=== PATIENT | female | born 1935 | race Caucasian/White ===

== ENCOUNTER 2016-09-11 08:31 | Inpatient (IN) | payer MEDICARE, OTHER ==
[2016-09-11] VITALS (11 sets, daily range): BP systolic 4–154; BP diastolic 63–90; PULSE 86–121; RESP 18–31; O2SAT 92–96
[~2016-09-11] VITALS: Ht 160 cm; Wt 81.0 kg
[~2016-09-11 08:31] MED LIST: ALBU18HF INH; ALBU2.5V4 INHALATION; ALEN35TA31 PO; ASPI-973 PO; BUDE0.5A2 INHALATION; BUPR75TA10 PO; CHOL500011 PO; CYCL10TA9 PO; FORM20VI2 IH; HYDR-4003 PO; LIP40 PO; LOSA100T3 PO; MIRT15TA6 PO; NPH,100I SUBQ; OMEP20CA11 PO; POTA10TA12 PO; PREC VG; RALO60TA13 PO; TRIA1CAP5 PO
--- NOTE | 2016-09-11 08:44 | ED.REPORT ---
HPI-Dyspnea / Wheezing Date of Service Sep 11, 2016 ED Provider: Alejandro Wallace DO The patient is an 81 year old female with history of COPD, asthma, hyperlipidemia, hypertension, diabetes mellitus, and previous stroke, who was sent to the emergency department by her regular doctor. The patient was found to be in atrial flutter during her appointment this morning. She went to see her doctor this morning for a sore throat that started 2 days ago. She has also noticed a cough, subjective fever, chills, shortness of breath, and mild diffuse chest "soreness" and "tightness." She has not had similar symptoms in the past. She is not on oxygen at home. She uses Nebulizers and inhalers at home as needed. She is currently taking Prednisone and has 2 doses left. Nursing Notes Stated Complaint: COUGH Chief Complaint: Dysrhythmia/Cardiac Nursing Notes Reviewed: Yes Allergies: Coded Allergies: lidocaine (Verified Allergy, Mild, 09/11/16) Seizure amlodipine (Verified Allergy, Unknown, EDEMA, 09/11/16) ciprofloxacin (Verified Allergy, Unknown, 09/11/16) lisinopril (Verified Allergy, Unknown, COUGH, 09/11/16) metformin (Verified Allergy, Unknown, Diarrhea, 09/11/16) sulfanilamide (Verified Allergy, Unknown, 09/11/16) Scheduled Aspirin (Aspirin) 81 Mg Tablet 162 MG PO DAILY Atorvastatin (Lipitor) 40 Mg Tablet 40 MG PO DAILY Budesonide Neb Soln (Budesonide Neb Soln) 0.5 Mg/2 Ml Neb 0.5 MG INHALATION BID Bupropion (Bupropion) 75 Mg Tablet 75 MG PO BID Cholecalciferol (Vitamin D3) (Vitamin D3) 5,000 Unit Tablet 5,000 UNIT PO DAILY Denosumab (Prolia) 60 Mg/1 Ml Syringe 60 MG SQ M5albwmw Formoterol Fumarate (Perforomist) 20 Mcg/2 Ml Vial.neb 20 MCG IH BID Losartan Potassium (Cozaar) 100 Mg Tablet 100 MG PO DAILY Methocarbamol (Methocarbamol) 500 Mg Tablet Unknown Dose PO HS Mirtazapine (Mirtazapine) 15 Mg Tablet 15 MG PO HS NPH, Human Insulin Isophane (HUMulin-N U100 Insulin Kwikpen) 100 Unit/1 Ml Insuln.pen 14-20 UNIT SUBQ TID Potassium Chloride ER (Potassium Chloride ER) 10 Meq Tablet 20 MEQ PO DAILY WITH FOOD TAKE WITH FOOD Triamterene/HCTZ 37.5-25 mg (Triamterene/HCTZ 37.5-25 mg) 1 Each Capsule 1 CAPSULE PO DAILY Scheduled PRN Albuterol Neb Soln (Albuterol Neb Soln) 2.5 Mg/3 Ml Vial.neb 2.5 MG INHALATION Q4H PRN PRN For Shortness of Breath General Time Seen by MD: 08:42 Chief Complaint Other (new-onset atrial flutter) Hx Obtained From: Patient, Primary care provider Arrived By: Walk-in Sudden in Onset?: No Onset Occurred: Onset unknown Symptom Duration: Duration unknown Quality: Painful (soreness) Severity: Current: Mild Severity: Maximum: Moderate Recent Healthcare: No recent hospitalization, Recent doctor visit Similar Sx Previous: No Past Medical History Past Medical History Diverticulosis Diverticulitis COPD Asthma Hyperlipidemia Depression Osteoporosis Shoulder dislocation in 2006 HTN DM Fibromyalgia Peroneal Tendonitis Ovarian cyst Esophageal spasm Stroke Past Surgical History Back surgery Abd surgery for ruptured ovarian cyst Laminectomy L4-L5 Peroneal tendon repair, left side Family History Mother had a cerebral hemorrhage. She has an aunt and uncle suffering from hemorrhagic strokes. Father also had brain bleed at 90 which he from. She is not aware of any ischemic/embolic strokes on either side of family. Smoking History Former Smoker Social History Alcohol Use: Denies alcohol use Drug Use: Denies drug use Other Social History: Lives alone, Local resident Ambulatory Status Independent Review of Systems Constitutional: Reports: Chills, Fever (subjective) Ears / Nose / Throat: Reports: Sore throat Respiratory: Reports: Non-productive cough, Shortness of breath Cardiovascular: Reports: Chest pain (diffuse) Complete sys rev & neg: except as marked. Physical Exam Initial Vital Signs Vital Signs (First) Date Time Temp Pulse Resp B/P Pulse Ox O2 Delivery O2 Flow Rate FiO2 09/11/16 08:38 09/11/16 08:46 37.1 119 31 92 Room Air Initial VS: Reviewed, Vital signs abnormal (hypoxic) Head / Eyes: Atraumatic, Normocephalic, PERRL ENT: Mucous membranes moist, Conjunctiva normal, No scleral icterus Abdomen / GI: Soft, Non-tender, No guarding, No rebound, No distention Lymphatic: No lymphadenopathy Extremities: Vascular intact, Neuro intact, No swelling, No tenderness Skin: Warm, Dry, No cyanosis Neurologic: Alert, Oriented, Nonfocal Psychiatric: Mood/affect normal, Behavior normal, Normal thought content General/Constitutional: Awake, Alert, Cooperative Neck: Atraumatic, Supple, No meningismus, Full range of motion, No swelling, Non-tender, No masses Respiratory / Chest: No respiratory distress, No rales, No rhonchi Diminished Breath Sounds: Positive: Decreased bilateral Wheezing / Retractions: Positive: Wheezing expiratory (faint) Severely diminished breath sounds with poor air flow and minimal expiratory wheezing in the upper lobes. Cardiovascular: Regular rhythm, Heart sounds NL, Peripheral circulation NL, Pulses = bilaterally Heart Rate / Rhythm: Positive: Tachycardia Lower Extremity / Pelvis / MS: Neurologic intact, Vascular intact, No edema Interpretation & Diagnostics Interpretation & Diagnostics: Negative for Influenza A and B Lab Results Interpretation Result Diagram: 09/11/16 0845 09/11/16 0845 Test 09/11/16 08:45 09/11/16 08:55 White Blood Count 8.2th/mm3 (3.8-10.1) Red Blood Count 4.99mil/mm3 (3.90-5.20) Hemoglobin 14.4g/dL (12.0-15.6) Hematocrit 42.7% (35.0-46.0) Mean Corpuscular Volume 85.6fL (81-100) Mean Corpuscular Hemoglobin 28.9pg (27.0-35.0) Mean Corpuscular Hemoglobin Concent 33.7% (32.0-37.0) Red Cell Distribution Width 13.0% (12.3-15.4) Platelet Count 192bil/L (150-400) Neutrophils (%) (Auto) 82.7% (40-74) Lymphocytes (%) (Auto) 8.5% (14-46) Monocytes (%) (Auto) 8.2% (4-12) Eosinophils (%) (Auto) 0.1% (0-5) Basophils (%) (Auto) 0.4% (0-3) Sodium Level 136mEq/L (134-144) Potassium Level 4.3mEq/L (3.5-5.2) Chloride Level 99mEq/L (97-108) Carbon Dioxide Level 22mmol/L (18-29) Blood Urea Nitrogen 20mg/dL (8-27) Creatinine 0.63mg/dL (0.57-1.00) Estimat Glomerular Filtration Rate 130mL/min (>59) Glucose Level 239mg/dL (60-99) Calcium Level 9.4mg/dL (8.5-10.1) Magnesium Level 1.8mg/dL (1.6-2.6) Total Bilirubin 0.4mg/dL (0.0-1.2) Aspartate Amino Transf (AST/SGOT) 20U/L (0-50) Alanine Aminotransferase (ALT/SGPT) 21U/L (0-32) Alkaline Phosphatase 103U/L (25-165) Troponin T < 0.010ug/L (0.0-0.011) C-Reactive Protein 3.9mg/dL (0.0-0.5) Total Protein 7.4g/dL (6.4-8.4) Albumin 3.9g/dL (3.4-5.0) Procalcitonin 0.11ng/mL (0.00-0.08) Hold Shaikh Top Tube Received (Received) ECG Interpretation ECG Interpretation: Junctional tachycardia LBBB No acute ischemia Time: 08:58 Interpreted by: ED physician ECG Interpretation: Sinus rhythm with a rate of 99 LBBB Time: 09:20 Interpreted by: ED physician X-Ray Chest Interpretation Chest Xray Interpretation: IMPRESSION: Mildly reduced inspiratory volume, mild scarring at the left lung base, no definite pneumonia found. Dictated by: Tico Troncoso M.D. on 09/11/2016 at 9:40 Interpretation / Wet Read by: Interpret - Radiologist Re-Eval/Medical Decision Med Decision/Clinical Course This is likely a COPD exacerbation, she was originally sent over for concern for atrial flutter. Her EKG from urgent care did not look like atrial flutter however the interpretation of the machine reported this. Her EKGs in the emergency department appeared to be sinus rhythm. She is however unable to ambulate well independently due to shortness of breath and can barely ambulate beyond the doorway to her emergency department rim. This along with her advanced age, I feel that she should be admitted for regular nebulizer treatments and clinical improvement. Source of Hx: Old records, Private physician Re-Evaluation/Progress #1: Time of Eval: 09:24 Re-Evaluation/Progress Note: Rechecked the patient. Improved air movement, more prominent wheezes in the upper lobes and now some wheezing in the lower lobes. will order an additional breathing treatment. Re-Evaluation/Progress #2: Time of Eval: 10:30 Re-Evaluation/Progress Note: Rechecked the patient. She is feeling unsteady and jittery. Re-Evaluation/Progress #3: Time of Eval: 10:37 Re-Evaluation/Progress Note: The patient is unable to walk a few steps from her bed. Discussed plan for admission with the patient. Re-Evaluation/Progress #4: Time of Eval: 11:11 Re-Evaluation/Progress Note: The patient wanted to attempt a road test again but is still unable to walk more than a few steps without assistance. After a few steps she was sating 90 % on room air and needed to stop. She will be admitted to the hospitalist. Consultation : Consulted With: Hospitalist Requested Call at: 11:11 Silica Filter Operator: Will see patient, Agrees with eval, Agrees with plan, Accepts admit Counseled Regarding: Diagnosis, Lab results, Need for admission Discharge & Departure Impression: Primary Impression: COPD exacerbation Disposition: ADMITTED TO HOSPITAL Discharge Condition All VS Reviewed: Yes Condition: Stable Referrals: Danis Chung MD (PCP) Scribe Attestation Portions of this note were transcribed by Ailyn Munoz. I, Dr. Wallace personally performed the history, physical exam and medical decision-making; I reviewed and confirmed the accuracy of the information in the transcribed note. Signed by: Lily Almanza, 09/11/2016 and [Time]. copies to: Danis Chung MD, Timothy S DO Sep 11, 2016 08:44 Ailyn Munoz Sep 11, 2016 08:52
[2016-09-11] MEDS ORDERED: Diltiazem 5 mg/mL 5 mL Inj IVPUSH ONE (08:55)
[2016-09-11] MEDS ORDERED: MethylprednisoLONE Sodium Succinate 62.5 mg/mL 2 mL Inj IVPUSH ONE (08:55)
[2016-09-11] MEDS ORDERED: Albuterol-Ipratropium 3 mL Inhalation Solution NEB ONE (08:55)
[2016-09-11] MEDS ORDERED: 0.9% Sodium Chloride 1,000 ML IV ONE (08:55)
[2016-09-11 09:12] LABS: BASOPHILS % (AUTO) 0.4 % (0-3); EOSINOPHILS % (AUTO) 0.1 % (0-5); MONOCYTES % (AUTO) 8.2 % (4-12); Mean Corpuscular Hemoglobin 28.9 pg (27.0-35.0); Mean Corpuscular Volume 85.6 fL (81-100); NEUTROPHILS % (AUTO) 82.7 % (40-74); Platelet Count 192 bil/L (150-400)
[2016-09-11] MEDS ORDERED: Albuterol 2.5 mg/3 mL Inhalation Solution NEB ONE (09:25)
--- NOTE | 2016-09-11 09:41 | DRSVH ---
PROCEDURE: X-RAY CHEST ONE VIEW, PORTABLE ([id number]) INDICATIONS: CHEST PAIN TECHNIQUE: One view of the chest was acquired. COMPARISON: [facility], CR, XR CHEST 1VW (PORTABLE), 01/13/2016, 20:20. [facility], CR, CHEST 1VW (PORTABLE), 12/28/2014, 11:39. FINDINGS: Surgical changes and devices: None. Lungs and pleura: No pleural effusions or pneumothorax. Lungs are clear. Mediastinum: Mediastinal contours appear normal. Heart size is normal. Bones and chest wall: No suspicious bony lesions. Overlying soft tissues appear unremarkable. IMPRESSION: Mildly reduced inspiratory volume, mild scarring at the left lung base, no definite pneum onia found. Dictated by: Tico Troncoso M.D. on 09/11/2016 at 9:40 Approved by: Tico Troncoso M.D. on 09/11/2016 at 9:40
[2016-09-11 09:53] LABS: Magnesium 1.8 mg/dL (1.6-2.6)
[2016-09-11 10:00] LABS: TROPONIN T < 0.010 ug/L (0.0-0.011)
[2016-09-11] MEDS ORDERED: ROB500 PO (11:35)
[2016-09-11] MEDS ORDERED: Ondansetron 2 mg/mL 2 mL Inj IVPUSH PRN (11:35)
[2016-09-11] MEDS ORDERED: Alum-Mag Hydrox-Simeth 30 mL Suspension PO PRN (11:35)
[2016-09-11] MEDS ORDERED: DENO60DI SQ (11:35)
--- NOTE | 2016-09-11 12:15 | NUR ---
ADMIT Report received from Lauren Reyes RN in ED. Pt brought onto floor at 1215 via WC. VSS, no s/sx of distress. Med rec completed by admit nurse, reviewed with pt, notified. Admission interventions and initial assessments completed. Belongings stored in closet, waiver signed. Pt oriented to unit, room, and call light. Welcome video will be viewed once located.
[2016-09-11] MEDS ORDERED: HYDROcodone-APAP 5-325 mg Tablet PO PRN (12:35)
--- NOTE | 2016-09-11 14:19 | PCM.HPMED ---
Subjective Date of Service Sep 11, 2016 Primary Provider: Admitting Physician: Mathew Montiel DO Primary Care Physician: Danis Chung MD Attending Physician: Mathew Montiel DO Chief Complaint: sob History of Present Illness: The patient is an 81 year old female with history of COPD, asthma, hyperlipidemia, hypertension, diabetes mellitus, and CVA who was sent to the ER from for shortest of breath and a flutter. She reports that in the last few days she has developed URI symptoms and has also become more short of breath. She reports some subjective fevers, productive cough, and tightness in her chest. She reports this is usually present consistent with her COPD exacerbation so she took some prednisone last night and this morning. She has been using her inhalers more frequently without much relief. She endorses worsening dyspnea on exertion, to the point that walking to the garbage can from the front door will make her short of breath. She denies any home oxygen usage and denies any new medications. 4 she went to urgent care today because her symptoms were not improving. At the urgent care, an EKG was performed and she was found to be in a flutter/ A. fib with rates in the 120s and a questionable left bundle branch block of unknown chronicity. She did not have any chest pain did note mild chest tightness and pressure. She was then transferred to the ED for further evaluation. In the ED she was still tachycardic in the 110s but afebrile, normotensive. EKG was repeated and she was in normal sinus rhythm. She still had the LBBB but initial troponin was negative. She was rolled tested but desatted. Influenza swab was negative in the ER Review of Systems: 12 point review of systems negative except as stated in the history of present illness Allergies Coded Allergies: lidocaine (Verified Allergy, Mild, 09/11/16) Seizure amlodipine (Verified Allergy, Unknown, EDEMA, 09/11/16) ciprofloxacin (Verified Allergy, Unknown, 09/11/16) lisinopril (Verified Allergy, Unknown, COUGH, 09/11/16) metformin (Verified Allergy, Unknown, Diarrhea, 09/11/16) sulfanilamide (Verified Allergy, Unknown, 09/11/16) PMH Diverticulosis Diverticulitis COPD Asthma Hyperlipidemia Depression Osteoporosis Shoulder dislocation in 2006 HTN DM Fibromyalgia Peroneal Tendonitis Ovarian cyst Esophageal spasm H/o CVA Surgical History Back surgery Abd surgery for ruptured ovarian cyst Laminectomy L4-L5 Peroneal tendon repair, left side Family History Mother had a cerebral hemorrhage. She has an aunt and uncle suffering from hemorrhagic strokes. Father also had brain bleed at 90 which he from. Family history of Dm2 Social History Hx Alcohol Use: No Hx Substance Use: No Hx Tobacco Use: No Smoking Status: Former Smoker Living Arrangement: with Friends/Roommate Exam Vital Signs Vital Sign - Last Date Time Temp Pulse Resp B/P Pulse Ox O2 Delivery O2 Flow Rate FiO2 09/11/16 12:30 103 09/11/16 12:19 36.9 20 130/73 93 Room Air Exam Gen: Well-developed elderly female in no acute distress, sitting upright in bed , speaks full sentences HEENT: PERRLA, EOMI, oropharynx nonerythematous, mucosa moist Neck: Soft, nontender, no JVP noted CV: Tachycardic but regular rhythm, mild systolic murmur noted, weak but equal peripheral pulses Respiratory: Mild diffuse wheezing bilaterally, some upper lung rhonchi noted, mildly productive cough noted, normal respiratory effort Abdomen: Soft, obese, nontender, nondistended, normoactive bowel sounds MSK: Muscle strength grossly intact, moves all extremities, no clubbing, edema, or cyanosis noted Neuro: Grossly intact without focal weakness, Alert and oriented 3, conversive Skin: Warm, dry, intact. Psych: Appropriate mood and affect Lab and Diagnostics Result Diagram: 09/11/16 0845 09/11/16 0845 X-Rays, CTs and MRIs PROCEDURE: X-RAY CHEST ONE VIEW, PORTABLE ([id number]) IMPRESSION: Mildly reduced inspiratory volume, mild scarring at the left lung base, no definite pneumonia found. Assessment & Plan The patient is an 81 year old female with history of COPD, asthma, hyperlipidemia, hypertension, diabetes mellitus, and CVA who was sent to the ER from for shortest of breath and a flutter. Admitted for likely COPD exacerbation secondary to URI and Atrial flutter. Acute Exacerbation of COPD secondary to Viral infection, POA Patient's exacerbation is likely due to a URI since she complains of cough, rhinorrhea, and fatigue in the last few days. And also there is only a slight left shift but no elevated WBC and chest x-ray shows no acute processes. Unlikely secondary pneumonia She is not yet dependent on Oxygen at home, but reports she is getting increasingly GOLD in the last year. She is tachycardic but saturating around 90-93% on room air. Continue to keep saturations between 88-92% We will continue home nebulizers Physical therapy evaluation, may need oxygen at home also Patient was given 125 mg of Solu-Medrol IV in the ER, will plan to continue with oral prednisone for 5 day burst Tolerating by mouth intake so we will hold off on IV fluids Influenza A and Coronavirus infection, POA Nasopharyngeal PCR positive for influenza A and coronavirus We will initiate Tamiflu 75 mg twice a day 5 days Atrial flutter, POA She was originally noted to be in atrial flutter, but this has resolved. Likely due to increased strain from COPD exacerbation Placed on telemetry for CV monitoring T2DM requiring Insulin, POA Patient is on Humulin 3 times a day at home We will initiate Humulin correctional scale, high-dose A1c pending Hyperlipidemia, poa Continue atorvastatin Depression, poa Continue home medications: Mirtazapine daily at bedtime, bupropion twice a day HTN, poa Continue all medications: Losartan, triamterene/hydrochlorothiazide, potassium supplementation, ASA 81 Dispo: Due to patient's medical complexity and decompensation, she will require at least 2 nights for stabilization and treatment Pain Evaluation: Adequate Pain Control VTE Prophylaxis: Sub-Q Heparin (Unfractionated) Resuscitation Status: Limited Interventions Time spent 50 minutes Attending Statement I have seen and evaluated patient at bedside, in addition to directly supervising care provided by resident physician. I agree with above documentation. copies to: Danis Chung MD, Hong D DO Sep 11, 2016 13:00 Mathew Montiel DO Sep 11, 2016 15:27
--- NOTE | 2016-09-11 15:36 | NUR ---
Evaluation completed. Please go to "Notes" then click on "Assessments and Notes" (bottom left corner of screen). Then select appropriate discipline tab on top of screen.
--- NOTE | 2016-09-11 15:37 | NUR ---
Behavior - eating In room while pt eating lunch, overheard choking and coughing. Observed pt eating very fast, continually coughing then resuming once coughing stops. 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 Pt instructed to slow down when eating and take time. notified and requested to have Speech Eval. Spoke with Speech Therapy - pt diet and monitoring on board. Will relay to next shift.
[2016-09-11] MEDS: Albuterol-Ipratropium 3 mL Inhalation Solution NEB SCH ×2 (15:40→22:28)
[2016-09-11] MEDS: Insulin Human REGular 300 Unit/3 mL Inj SUBQ SCH ×2 (17:05→21:44)
[2016-09-11] MEDS: Heparin 5,000 Unit/mL Inj SUBQ SCH (17:10)
[2016-09-11] MEDS: Budesonide 0.5 mg/2 mL Inhalation Solution INHALATION SCH (22:28)
[2016-09-12] VITALS (10 sets, daily range): BP systolic 116–142; BP diastolic 64–78; PULSE 78–93; RESP 18–20; O2SAT 92–98
[2016-09-12] MEDS: Heparin 5,000 Unit/mL Inj SUBQ SCH ×3 (00:30→17:01)
[2016-09-12] MEDS: Insulin Human REGular 300 Unit/3 mL Inj SUBQ SCH ×4 (02:24→20:22)
--- NOTE | 2016-09-12 03:14 | NUR ---
COUGH Pt complained of cough keeping her awake. Administered Tessalon Pearles, effective. Pt resting in bed with eyes closed. No further complaints of cough at this time. Will continue to monitor. Call light within reach, using appropriately. Pleasant and cooperative with care.
[2016-09-12 06:30] LABS: BASOPHILS % (AUTO) 0.1 % (0-3); EOSINOPHILS % (AUTO) 0 % (0-5); Mean Corpuscular Hemoglobin 28.6 pg (27.0-35.0); Mean Corpuscular Volume 85.9 fL (81-100); Platelet Count 185 bil/L (150-400)
[2016-09-12] MEDS: Albuterol-Ipratropium 3 mL Inhalation Solution NEB SCH ×3 (07:25→20:34)
[2016-09-12] MEDS: Budesonide 0.5 mg/2 mL Inhalation Solution INHALATION SCH ×2 (07:25→20:34)
[2016-09-12] MEDS: predniSONE 20 mg Tablet PO SCH (08:15)
[2016-09-12] MEDS: Potassium Chloride 20 mEq SR Tablet PO SCH (08:16)
[2016-09-12] MEDS ORDERED: guaiFENesin DM 200-20 mg/10 mL Syrup PO PRN (08:45)
[2016-09-12] MEDS ORDERED: Benzocaine-Menthol Lozenge 2/Pkg PO PRN (08:45)
--- NOTE | 2016-09-12 10:53 | PCM.PNMED ---
Subjective Date of Service Sep 12, 2016 Subjective Brigette is doing better this morning. She reports she is still somewhat wheezy, but improving. Her cough bothers quite a bit because she feels like she has a lump in her throat that she can't cough up. She still is fairly dyspneic with exertion. Exam Vital Signs Vital Sign - Last Date Time Temp Pulse Resp B/P Pulse Ox O2 Delivery O2 Flow Rate FiO2 09/12/16 06:04 93 09/12/16 05:22 36.8 18 137/77 98 Room Air Intake and Output 09/11/16 09/11/16 09/12/16 Cumulative From/Thru 15:00 23:00 07:00 09/11/16 09:26 - 09/12/16 06:09 Intake Total 1000 ml 400 ml 2568 ml 3968 ml Balance 1000 ml 400 ml 2568 ml 3968 ml Intake Oral 400 ml 1200 ml 1600 ml IV Total 1000 ml 1368 ml 2368 ml # Voids 2 3 5 # Bowel Movements 0 0 Exam Gen: Well-developed elderly female in no acute distress, sitting upright in bed , speaks full sentences HEENT: PERRLA, EOMI, oropharynx nonerythematous, mucosa moist Neck: Soft, nontender, no JVP noted CV: RRR, mild systolic murmur noted, weak but equal peripheral pulses Respiratory: Mild diffuse wheezing bilaterally, mildly productive cough noted, normal respiratory effort Abdomen: Soft, obese, nontender, nondistended, normoactive bowel sounds MSK: Muscle strength grossly intact, moves all extremities, no clubbing, edema, or cyanosis noted Neuro: Grossly intact without focal weakness, Alert and oriented 3, conversive Skin: Warm, dry, intact. Psych: Appropriate mood and affect IVs and Medications Medications Reviewed: Medications were reviewed in detail Lab and Diagnostics Result Diagram: 09/12/1651209/12/16512 X-Rays, CTs and MRIs PROCEDURE: X-RAY CHEST ONE VIEW, PORTABLE ([id number]) IMPRESSION: Mildly reduced inspiratory volume, mild scarring at the left lung base, no definite pneumonia found. Assessment & Plan The patient is an 81 year old female with history of COPD, asthma, hyperlipidemia, hypertension, diabetes mellitus, and CVA who was sent to the ER from for shortest of breath and a flutter. Admitted for likely COPD exacerbation secondary to URI and Atrial flutter. Acute Exacerbation of COPD secondary to Viral infection, POA Patient's exacerbation likely due to Influenza and Coronavirus as below. And also there is only a slight left shift but no elevated WBC and chest x-ray shows no acute processes. Unlikely secondary pneumonia She is not yet dependent on Oxygen at home, but reports she is getting increasingly GOLD in the last year. She is tachycardic but saturating around 90-93% on room air. Continue to keep saturations between 88-92% We will continue home nebulizers Physical therapy evaluation, may need oxygen at home also Patient was given 125 mg of Solu-Medrol IV in the ER, will plan to continue with 40mg oral prednisone for 5 day burst Tolerating by mouth intake so we will hold off on IV fluids Influenza A and Coronavirus infection, POA Nasopharyngeal PCR positive for influenza A and coronavirus We will initiate Tamiflu 75 mg twice a day 5 days (started on 09/11) Added Guaifensin DM and Cepacol Lozenges to help alleviate coughing burden. Also has Pawan Davis prn Atrial flutter, POA She was originally noted to be in atrial flutter, but this has resolved. Likely due to increased strain from COPD exacerbation Placed on telemetry for CV monitoring T2DM requiring Insulin, POA Patient is on Humulin 3 times a day at home We will initiate Humulin correctional scale, high-dose A1c 9.4 during admission. May need night time Lantus if morning sugars >250 consistently Hyperlipidemia, poa Continue atorvastatin Depression, poa Continue home medications: Mirtazapine daily at bedtime, bupropion twice a day HTN, poa Continue all medications: Losartan, triamterene/hydrochlorothiazide, potassium supplementation, ASA 81 Dispo: Likely discharge in 1-2 days when medically improved Pain Evaluation: Adequate Pain Control VTE Prophylaxis: Sub-Q Heparin (Unfractionated) Resuscitation Status: Limited Interventions Attending Statement I have seen and evaluated Mrs. Hugo at her bedside, in addition to directly supervising the care provided by the resident physician. I agree with the above documentation, which matches my exam, findings and plans. Selwyn Arredondo M.D., DO Sep 12, 2016 06:51 Alta Goel MD Sep 12, 2016 11:19
--- NOTE | 2016-09-12 11:13 | NUR ---
Evaluation completed. Please go to "Notes" then click on "Assessments and Notes" (bottom left corner of screen). Then select appropriate discipline tab on top of screen.
--- NOTE | 2016-09-12 13:23 | NUR ---
Social Work: Initial Assessment / Readiness for d/c Data: Pt is an 81 y/o female admitted for COPD exacerbation. Pt's PCP is Dr Chung, pt's insurance is Medicare with [employer]. EMR reviewed. Pt discussed in rounds, MD states pt likely ready for d/c tomorrow. COMMANDING OFFICER GARAGE met with pt at bedside, role explained. Pt states that she lives in [place] with a roommate in a single story home where she uses a walker. Pt states she does not have a DPOA and declined information. Pt reports that she drives, has history with [facility] , history with [facility], and no VA or LTC insurance. Pt was sitting at bedside during discussion and states she has been up and independent in the room. No further d/c planning needs anticipated at this time. COMMANDING OFFICER GARAGE will continue to follow if needs arise. Assessment: Pt who is independent at baseline. Plan: Pt will d/c home via POV when medically stable, likely tomorrow. No further d/c planning needs anticipated at this time. COMMANDING OFFICER GARAGE will continue to follow if needs arise. SERAFIN May Addendum: 09/12/16 at 1330 by AKIRA ARANGO Amended: Links added.
[2016-09-12 16:12] LABS: APPEARANCE,URINE CLEAR (CLEAR,HAZY); COLOR,URINE STRAW (YELLOW); OCCULT BLOOD,URINE SMALL (NEGATIVE); UROBILINOGEN,URINE NORMAL (NORMAL)
--- NOTE | 2016-09-12 19:12 | NUR ---
SOB/Cough Morning assessment pt had ineffective cough, very raspy voice, unable to clear "frog in throat." MD notified, order for PRN Guaifenesin & Lozenge and encouraged to drink hot tea. Pt had several cups of tea. Reported improved cough, relief from dry throat, and better breathing. SOB improved over shift, no reports of SOB at rest. Lung sounds improved, little to no wheezing. Continuing to monitor.
[2016-09-13] VITALS (8 sets, daily range): BP systolic 119–142; BP diastolic 58–75; PULSE 64–93; RESP 18–20; O2SAT 91–95
[2016-09-13] MEDS: Heparin 5,000 Unit/mL Inj SUBQ SCH ×2 (02:52→07:43)
[2016-09-13] MEDS: Insulin Human REGular 300 Unit/3 mL Inj SUBQ SCH ×2 (02:53→09:04)
[2016-09-13 05:31] LABS: BASOPHILS % (AUTO) 0.4 % (0-3); EOSINOPHILS % (AUTO) 0.6 % (0-5); MONOCYTES % (AUTO) 10.7 % (4-12); Mean Corpuscular Hemoglobin 28.3 pg (27.0-35.0); Mean Corpuscular Volume 86.2 fL (81-100); NEUTROPHILS % (AUTO) 58.6 % (40-74); Platelet Count 176 bil/L (150-400)
--- NOTE | 2016-09-13 05:49 | NUR ---
Cough Pt continues to complain of cough. Refused tea. Administered Tessalon Pearles, effective. Will continue to monitor.
[2016-09-13] MEDS: Budesonide 0.5 mg/2 mL Inhalation Solution INHALATION SCH (07:18)
[2016-09-13] MEDS: Albuterol-Ipratropium 3 mL Inhalation Solution NEB SCH ×2 (07:18→12:38)
[2016-09-13] MEDS: Potassium Chloride 20 mEq SR Tablet PO SCH (07:42)
[2016-09-13] MEDS: predniSONE 20 mg Tablet PO SCH (07:42)
--- NOTE | 2016-09-13 09:15 | NUR ---
SAÚL signed SERAFIN May
--- NOTE | 2016-09-13 10:05 | NUR ---
Social Work: Readiness for d/c Data: Pt is on day 2 of hospitalization. EMR reviewed. Pt discussed in rounds, states pt likely to d/c today. No further d/c planning needs identified at this time. [employer]PERATOR will continue to follow. Assessment: Pt who is independent at baseline. Plan: Pt will d/c home via POV, likely today. No further d/c planning needs identified at this time. [employer]HICLE OPERATOR will continue to follow. SERAFIN May
--- NOTE | 2016-09-13 10:52 | NUR ---
Oxygen Patient is alert and oriented X3. Able to make needs known. per vital signs oxygen 91% room air. patient coughed and deep breath and rechecked oxygen levels still stayed 91% RA to 94% RA and dropped back to 91% RA.Notified doctor r/t Oxygen levels 91% at room air and aware. Afebrile. patient has been receiving neb treatment and states," they help me with cough and breathing better. Denies pain or discomfort. blood sugars 173. call light with in reach for safety and verbalize the understanding to use call light. Stable mood. Will continue to monitor vital signs and oxygen levels.
--- NOTE | 2016-09-13 11:27 | PCM.DIMED ---
Discharge Instructions Date of Service Sep 13, 2016 Dates of Hospitalization Sep 11, 2016 at 11:35 Discharge Diagnosis Discharge Diagnosis Acute Exacerbation of COPD secondary to Viral infection, present on admission, resolving Influenza A and Coronavirus infection, present on admission, resolving Atrial flutter, present on admission, resolved T2DM requiring Insulin, present on admission, stable Hyperlipidemia,present on admission, stable Depression,present on admission, stable HTN,present on admission, stable Diet Diabetic Activity No restrictions Call your provider Fever or Chills, Shortness of breath, Excessive diarrhea Patient Instructions For this hospitalization, you were admitted for COPD exacerbation. This was caused by the flu. Please take: -- prednisone 40mg daily. Please take for the next 2 day. -- Tamiflu 75mg twice daily. You will need to take 5 more doses of this medication. Additionally, please followup with your primary care provider in 1wk to see if your COPD exacerbation has been stabilized. Follow-up Provider: Danis Chung MD Follow-up with PCP in: 1 week Haider Carreno DO Sep 13, 2016 11:27
[2016-09-13] MEDS ORDERED: PRED-508 PO (11:29)
[2016-09-13] MEDS ORDERED: OSLT75C PO (11:29)
--- NOTE | 2016-09-13 12:29 | NUR ---
Discharge patient is alert and oriented X3. Denies pain or discomfort. stable vital signs. Oxygen 92%RA. Reviewed discharge continuing home medications and 2 new prescription from doctor and understood medications and states," they are not new to me, i have been taking them for years, the only new is Tamiflu and prednisone." patient called room mate to go home and awaiting for room mate. respiratory therapy here and patient will receive treatment before she discharges. Care notes provided and understood. patient will call and schedule the appointment with PCP with in one week as ordered.
--- NOTE | 2016-09-13 13:48 | NUR ---
Social Work: Discharge Data: Pt is on day 2 of hospitalization. EMR reviewed, d/c orders are in. No further d/c planning needed. [employer] RO[employer] will continue to follow if needs arise. Assessment: Pt who is independent at baseline. Plan: Pt will d/c home via POV today. No further d/c planning needed. [employer] will continue to follow if needs arise. SERAFIN May
--- NOTE | 2016-09-13 13:52 | NUR ---
Discharged approx 1350 patient's room mate here. patient discharged via wheel chair and accompanied by nursing staff.
--- NOTE | 2016-09-13 20:19 | PCM.DC.MED ---
Discharge Summary Date of Service Sep 13, 2016 Dates of Hospitalization Date of Hospital Admission Sep 11, 2016 at 11:35 Date of Discharge: Sep 13, 2016 Providers: Admitting Physician: Mathew Montiel DO Primary Care Physician: Danis Chung MD Attending Physician: Mathew Montiel DO Diagnosis at Time of Discharge Diagnosis at Time of Discharge Acute Exacerbation of COPD secondary to Viral infection, present on admission, resolving Influenza A and Coronavirus infection, present on admission, resolving Atrial flutter, present on admission, resolved T2DM requiring Insulin, present on admission, stable Hyperlipidemia,present on admission, stable Depression,present on admission, stable HTN,present on admission, stable Procedures XRay, CTs & MRIs PROCEDURE: X-RAY CHEST ONE VIEW, PORTABLE ([id number]) IMPRESSION: Mildly reduced inspiratory volume, mild scarring at the left lung base, no definite pneumonia found. Brief History The patient is an 81 year old female with history of COPD, asthma, hyperlipidemia, hypertension, diabetes mellitus, and CVA who was sent to the ER from for shortest of breath and a flutter. She reports that in the last few days she has developed URI symptoms and has also become more short of breath. She reports some subjective fevers, productive cough, and tightness in her chest. She reports this is usually present consistent with her COPD exacerbation so she took some prednisone last night and this morning. She has been using her inhalers more frequently without much relief. She endorses worsening dyspnea on exertion, to the point that walking to the garbage can from the front door will make her short of breath. She denies any home oxygen usage and denies any new medications. 4 she went to urgent care today because her symptoms were not improving. At the urgent care, an EKG was performed and she was found to be in a flutter/ A. fib with rates in the 120s and a questionable left bundle branch block of unknown chronicity. She did not have any chest pain did note mild chest tightness and pressure. She was then transferred to the ED for further evaluation. In the ED she was still tachycardic in the 110s but afebrile, normotensive. EKG was repeated and she was in normal sinus rhythm. She still had the LBBB but initial troponin was negative. She was rolled tested but desatted. Influenza swab was negative in the ER Hospital Course The patient is an 81 year old female with history of COPD, asthma, hyperlipidemia, hypertension, diabetes mellitus, and CVA who was sent to the ER from for shortest of breath and a flutter. Admitted for COPD exacerbation secondary to URI and atrial flutter. Received Tamiflu in addition to prednisone which tremendously improved breathing. Patient stable discharged with 2 more days of prednisone and Tamiflu Acute Exacerbation of COPD secondary to Viral infection, POA Patient's exacerbation likely due to Influenza and Coronavirus as below. And also there is only a slight left shift but no elevated WBC and chest x-ray shows no acute processes. Unlikely secondary pneumonia She is not yet dependent on Oxygen at home, but reports she is getting increasingly GOLD in the last year. Initially placed on Solu-Medrol 125 mg IV, switched to oral prednisone 40 mg qd started 09/11/2016 Continue on prednisone for 5 days course Influenza A and Coronavirus infection, POA Nasopharyngeal PCR positive for influenza A and coronavirus We will initiate Tamiflu 75 mg twice a day 5 days (started on 09/11) Added Guaifensin DM and Cepacol Lozenges to help alleviate coughing burden. Also has Tessalon Ryan prn Atrial flutter, POA She was originally noted to be in atrial flutter, but this has resolved. Likely due to increased strain from COPD exacerbation Placed on telemetry for CV monitoring T2DM requiring Insulin, POA Patient is on Humulin 3 times a day at home We will initiate Humulin correctional scale, high-dose A1c 9.4 during admission. May need night time Lantus if morning sugars >250 consistently Hyperlipidemia, poa Continue atorvastatin Depression, poa Continue home medications: Mirtazapine daily at bedtime, bupropion twice a day HTN, poa Continue all medications: Losartan, triamterene/hydrochlorothiazide, potassium supplementation, ASA 81 Exam Vital Signs (Last) Date Time Temp Pulse Resp B/P Pulse Ox O2 Delivery O2 Flow Rate FiO2 09/13/16 12:39 20 94 Room Air 09/13/16 12:20 37.2 93 137/71 Exam Gen: Well-developed elderly female in no acute distress, sitting upright in bed , speaks full sentences HEENT: PERRLA, EOMI, oropharynx nonerythematous, mucosa moist Neck: Soft, nontender, no JVP noted CV: RRR, mild systolic murmur noted, weak but equal peripheral pulses Respiratory: Mild diffuse wheezing bilaterally, mildly productive cough noted, normal respiratory effort Abdomen: Soft, obese, nontender, nondistended, normoactive bowel sounds MSK: Muscle strength grossly intact, moves all extremities, no clubbing, edema, or cyanosis noted Neuro: Grossly intact without focal weakness, Alert and oriented 3, conversive Skin: Warm, dry, intact. Psych: Appropriate mood and affect Test 09/11/16 08:45 09/11/16 08:55 09/11/16 14:25 09/11/16 20:10 Hemoglobin A1c 9.4% (4.8-5.6) Magnesium Level 1.8mg/dL (1.6-2.6) Procalcitonin 0.11ng/mL (0.00-0.08) Hold Shaikh Top Tube Received (Received) Lactic Acid Level 1.9mmol/L (0.4-2.0) Troponin T < 0.010ug/L (0.0-0.011) Test 09/12/16 05:13 09/12/16 15:50 09/13/16 05:05 Total Bilirubin 0.2mg/dL (0.0-1.2) Aspartate Amino Transf (AST/SGOT) 23U/L (0-50) Alanine Aminotransferase (ALT/SGPT) 19U/L (0-32) Alkaline Phosphatase 95U/L (25-165) C-Reactive Protein 3.7mg/dL (0.0-0.5) Total Protein 6.3g/dL (6.4-8.4) Albumin 3.6g/dL (3.4-5.0) Urine Color Straw (YELLOW) Urine Appearance Clear (CLEAR,HAZY) Urine pH 6.0 (5.0-8.0) Urine Specific Umbarger 1.005 (1.003-1.035) Urine Protein Negativemg/dL (NEG,TRACE) Urine Glucose (UA) 1000mg/dL (NEGATIVE) Urine Ketones Negativemg/dL (NEGATIVE) Urine Occult Blood Small (NEGATIVE) Urine Nitrite Negative (NEGATIVE) Urine Bilirubin Negative (NEGATIVE) Urine Urobilinogen Normalmg/dL (NORMAL) Urine Leukocyte Esterase Negative (NEGATIVE) Urine RBC 0-2/hpf (0-2) Urine WBC 0-5/hpf (0-5) Urine Epithelial Cells None/hpf (NONE-MOD) Urine Crystals None seen (NONE SEEN) Urine Bacteria None/hpf (NONE-FEW) Urine Hyaline Casts None/lpf (NONE) Urine Granular Casts None seen (NONE SEEN) Urine Waxy Casts None seen (NONE SEEN) Urine Red Blood Cell Casts None seen (NONE SEEN) Urine White Blood Cell Casts None seen (NONE SEEN) Urine Mucus None seen (None Seen) Urine Trichomonas None seen (NONE SEEN) Urine Yeast None (NONE SEEN) Urinalysis Comment None White Blood Count 5.3th/mm3 (3.8-10.1) Red Blood Count 4.48mil/mm3 (3.90-5.20) Hemoglobin 12.7g/dL (12.0-15.6) Hematocrit 38.6% (35.0-46.0) Mean Corpuscular Volume 86.2fL (81-100) Mean Corpuscular Hemoglobin 28.3pg (27.0-35.0) Mean Corpuscular Hemoglobin Concent 32.9% (32.0-37.0) Red Cell Distribution Width 13.1% (12.3-15.4) Platelet Count 176bil/L (150-400) Neutrophils (%) (Auto) 58.6% (40-74) Lymphocytes (%) (Auto) 29.7% (14-46) Monocytes (%) (Auto) 10.7% (4-12) Eosinophils (%) (Auto) 0.6% (0-5) Basophils (%) (Auto) 0.4% (0-3) Sodium Level 139mEq/L (134-144) Potassium Level 3.8mEq/L (3.5-5.2) Chloride Level 102mEq/L (97-108) Carbon Dioxide Level 23mmol/L (18-29) Blood Urea Nitrogen 23mg/dL (8-27) Creatinine 0.49mg/dL (0.57-1.00) Estimat Glomerular Filtration Rate 174mL/min (>59) Glucose Level 201mg/dL (60-99) Calcium Level 8.3mg/dL (8.5-10.1) Discharge Medications Discharge Medications Aspirin (Aspirin) 81 Mg Tablet 162 MG PO DAILY Prescribed by: GAVIN MASSEY MD Atorvastatin (Lipitor) 40 Mg Tablet 40 MG PO DAILY Prescribed by: GAVIN MASSEY MD Budesonide Neb Soln (Budesonide Neb Soln) 0.5 Mg/2 Ml Neb 0.5 MG INHALATION BID (Reported) Bupropion (Bupropion) 75 Mg Tablet 75 MG PO BID (Reported) Cholecalciferol (Vitamin D3) (Vitamin D3) 5,000 Unit Tablet 5,000 UNIT PO DAILY (Reported) Denosumab (Prolia) 60 Mg/1 Ml Syringe 60 MG SQ [id number] (Reported) Formoterol Fumarate (Perforomist) 20 Mcg/2 Ml Vial.neb 20 MCG IH BID (Reported) Losartan Potassium (Cozaar) 100 Mg Tablet 100 MG PO DAILY (Reported) Methocarbamol (Methocarbamol) 500 Mg Tablet Unknown Dose PO HS (Reported) Mirtazapine (Mirtazapine) 15 Mg Tablet 15 MG PO HS (Reported) NPH, Human Insulin Isophane (HUMulin-N U100 Insulin Kwikpen) 100 Unit/1 Ml Insuln.pen 14-20 UNIT SUBQ TID (Reported) Oseltamivir Phosphate (Tamiflu) 10 Cap/Pkg Capsule 75 MG PO BID Prescribed by: SRIDEVI CARRENO DO Potassium Chloride ER (Potassium Chloride ER) 10 Meq Tablet 20 MEQ PO DAILY WITH FOOD (Reported) TAKE WITH FOOD Prednisone (Deltasone) 20 Mg Tablet 40 MG PO DAILY take 1 pill daily, starting tomorrow (09/14) Prescribed by: SRIDEVI CARRENO DO Triamterene/HCTZ 37.5-25 mg (Triamterene/HCTZ 37.5-25 mg) 1 Each Capsule 1 CAPSULE PO DAILY (Reported) As needed Albuterol Neb Soln (Albuterol Neb Soln) 2.5 Mg/3 Ml Vial.neb 2.5 MG INHALATION Q4H PRN PRN For Shortness of Breath (Reported) Followup Plan Discharge Diet: Diabetic Discharge Activity: No restrictions Patient Instructions For this hospitalization, you were admitted for COPD exacerbation. This was caused by the flu. Please take: -- prednisone 40mg daily. Please take for the next 2 day. -- Tamiflu 75mg twice daily. You will need to take 5 more doses of this medication. Additionally, please followup with your primary care provider in 1wk to see if your COPD exacerbation has been stabilized. Follow-up Provider: Danis Chung MD Follow-up with PCP in: 1 week Attending Statement I saw Mrs. Hugo with Dr. Carreno. My exam and plans are as described above. William Goel MD copies to: Danis Chung MD,[facility] DO Sep 13, 2016 20:18 Alta Goel MD Sep 13, 2016 20:53
== END 2016-09-13 13:40 | disposition home or self-care (01) | DRG 194 ==
LOC: SED 08:31 → MPC 11:35
PROVIDERS: ADMIT Family Medicine; ATTEND Family Medicine
DX: J10.1 Influenza due to other identified influenza virus with other respiratory manifestations (principal); J44.1 Chronic obstructive pulmonary disease with (acute) exacerbation; I48.92 Unspecified atrial flutter; B97.29 Other coronavirus as the cause of diseases classified elsewhere; Z86.73 Personal history of transient ischemic attack (TIA), and cerebral infarction without residual deficits; Z79.52 Long term (current) use of systemic steroids; Z79.82 Long term (current) use of aspirin; Z87.891 Personal history of nicotine dependence; E11.9 Type 2 diabetes mellitus without complications; E78.5 Hyperlipidemia, unspecified; F32.9 Major depressive disorder, single episode, unspecified; I10 Essential (primary) hypertension

== ENCOUNTER 2016-09-28 15:18 | Inpatient (IN) | payer MEDICARE, OTHER ==
[~2016-09-28] VITALS: Ht 160 cm; Wt 82.6 kg
[2016-09-28] VITALS (10 sets, daily range): BP systolic 109–146; BP diastolic 66–83; PULSE 99–132; RESP 20–38; O2SAT 93–97
[~2016-09-28 15:18] MED LIST changes: -ALBU18HF INH; -ALEN35TA31 PO; -CYCL10TA9 PO; +DENO60DI SQ; -HYDR-4003 PO; -OMEP20CA11 PO; +OSLT75C PO; -PREC VG; +PRED-508 PO; -RALO60TA13 PO; +ROB500 PO; +Vancomycin Dose per Pharmacist XX ONE
[2016-09-28] MEDS ORDERED: 0.9% Sodium Chloride 1,000 ML IV ONE (15:25)
--- NOTE | 2016-09-28 15:25 | ED.REPORT ---
HPI-General Illness Date of Service Sep 28, 2016 ED Provider: Chencho Arredondo MD 81 year old female with a history of CVA, diabetes, and COPD presents to the ER via EMS due to fever (102.1F at home) and altered mental status. History is limited due to patient's mental status. No friends or family members are present for interview. Nursing Notes Stated Complaint: FEVER Nursing Notes Reviewed: Yes Allergies: Coded Allergies: lidocaine (Verified Allergy, Mild, 09/11/16) Seizure amlodipine (Verified Allergy, Unknown, EDEMA, 09/11/16) ciprofloxacin (Verified Allergy, Unknown, 09/11/16) lisinopril (Verified Allergy, Unknown, COUGH, 09/11/16) metformin (Verified Allergy, Unknown, Diarrhea, 09/11/16) sulfanilamide (Verified Allergy, Unknown, 09/11/16) Scheduled Aspirin (Aspirin) 81 Mg Tablet 162 MG PO DAILY Atorvastatin (Lipitor) 40 Mg Tablet 40 MG PO DAILY Budesonide Neb Soln (Budesonide Neb Soln) 0.5 Mg/2 Ml Neb 0.5 MG INHALATION BID Bupropion (Bupropion) 75 Mg Tablet 75 MG PO BID Cholecalciferol (Vitamin D3) (Vitamin D3) 5,000 Unit Tablet 5,000 UNIT PO DAILY Denosumab (Prolia) 60 Mg/1 Ml Syringe 60 MG SQ [id number] Formoterol Fumarate (Perforomist) 20 Mcg/2 Ml Vial.neb 20 MCG IH BID Losartan Potassium (Cozaar) 100 Mg Tablet 100 MG PO DAILY Methocarbamol (Methocarbamol) 500 Mg Tablet Unknown Dose PO HS Mirtazapine (Mirtazapine) 15 Mg Tablet 15 MG PO HS NPH, Human Insulin Isophane (HUMulin-N U100 Insulin Kwikpen) 100 Unit/1 Ml Insuln.pen 14-20 UNIT SUBQ TID Oseltamivir Phosphate (Tamiflu) 10 Cap/Pkg Capsule 75 MG PO BID Potassium Chloride ER (Potassium Chloride ER) 10 Meq Tablet 20 MEQ PO DAILY WITH FOOD TAKE WITH FOOD Prednisone (Deltasone) 20 Mg Tablet 40 MG PO DAILY take 1 pill daily, starting tomorrow (09/14) Triamterene/HCTZ 37.5-25 mg (Triamterene/HCTZ 37.5-25 mg) 1 Each Capsule 1 CAPSULE PO DAILY Scheduled PRN Albuterol Neb Soln (Albuterol Neb Soln) 2.5 Mg/3 Ml Vial.neb 2.5 MG INHALATION Q4H PRN PRN For Shortness of Breath General Time Seen by MD: 15:24 Chief Complaint Altered mental status, Fever Hx Obtained From: Patient, EMS Arrived By: Ambulance Onset Occurred: Onset unknown Past Medical History Past Medical History Diverticulosis Diverticulitis COPD Asthma Hyperlipidemia Depression Osteoporosis Shoulder dislocation in 2006 HTN DM Fibromyalgia Peroneal Tendonitis Ovarian cyst Esophageal spasm Stroke Past Surgical History Back surgery Abd surgery for ruptured ovarian cyst Laminectomy L4-L5 Peroneal tendon repair, left side Family History Mother had a cerebral hemorrhage. She has an aunt and uncle suffering from hemorrhagic strokes. Father also had brain bleed at 90 which he from. She is not aware of any ischemic/embolic strokes on either side of family. Smoking History Former Smoker Social History Alcohol Use: Denies alcohol use Drug Use: Denies drug use Other Social History: Lives alone, Local resident Ambulatory Status Independent Review of Systems ROS is limited due to patient's mental status. Full Review of Systems Constitutional: Reports: Fever (102.1F) Neurologic: Reports: Change LOC Psychiatric: Reports: Change mental status Complete sys rev & neg: except as marked. Physical Exam Vital Signs Vital Signs Date Time Temp Pulse Resp B/P Pulse Ox O2 Delivery O2 Flow Rate FiO2 09/28/16 17:49 114 33 143/80 96 Nasal Cannula 4 09/28/16 17:12 122 23 129/66 93 Room Air 09/28/16 16:15 125 38 146/73 95 Nasal Cannula 3 09/28/16 15:35 37.2 132 29 143/83 97 Nasal Cannula 3 Initial VS: Reviewed Head / Eyes: Atraumatic, Normocephalic Neck: Supple, Non-tender, Full range of motion Extremities: Vascular intact, Neuro intact, No swelling, No tenderness Skin: Warm, Dry, No cyanosis General/Constitutional: Well developed Alertness: Positive: Somnolent Appearance / Presentation: Positive: Hygiene poor Smells of urine. ENT: Airway patent, Pharynx NL Mouth: Positive: Mucous membranes dry Respiratory / Chest: No chest tenderness, No chest wall deformity Tachypneic. Coarse breath sounds bilaterally. Cardiovascular: Regular rhythm, Heart sounds NL, Cap refill not delayed, Peripheral circulation NL Heart Rate / Rhythm: Positive: Tachycardia Abdomen: Non-tender, No guarding, No rebound Bowel Sounds / Distention: Positive: Distention moderate Neurologic: No motor deficits, No sensory deficits Mental Status: Positive: Somnolent No visible neurological deficits. Interpretation & Diagnostics Lab Results Interpretation Result Diagram: 09/28/16 1530 09/28/16 1530 Test 09/28/16 15:30 09/28/16 15:50 09/28/16 15:56 White Blood Count 21.1th/mm3 (3.8-10.1) Red Blood Count 5.25mil/mm3 (3.90-5.20) Hemoglobin 15.1g/dL (12.0-15.6) Hematocrit 44.5% (35.0-46.0) Mean Corpuscular Volume 84.8fL (81-100) Mean Corpuscular Hemoglobin 28.8pg (27.0-35.0) Mean Corpuscular Hemoglobin Concent 33.9% (32.0-37.0) Red Cell Distribution Width 13.5% (12.3-15.4) Platelet Count 244bil/L (150-400) Neutrophils (%) (Auto) 82.9% (40-74) Lymphocytes (%) (Auto) 8.6% (14-46) Monocytes (%) (Auto) 8.1% (4-12) Eosinophils (%) (Auto) 0% (0-5) Basophils (%) (Auto) 0.1% (0-3) Sodium Level 131mEq/L (134-144) Potassium Level 4.3mEq/L (3.5-5.2) Chloride Level 93mEq/L (97-108) Carbon Dioxide Level 18mmol/L (18-29) Blood Urea Nitrogen 20mg/dL (8-27) Creatinine 0.53mg/dL (0.57-1.00) Estimat Glomerular Filtration Rate 159mL/min (>59) Glucose Level 286mg/dL (60-99) Calcium Level 9.4mg/dL (8.5-10.1) Total Bilirubin 0.9mg/dL (0.0-1.2) Aspartate Amino Transf (AST/SGOT) 17U/L (0-50) Alanine Aminotransferase (ALT/SGPT) 13U/L (0-32) Alkaline Phosphatase 90U/L (25-165) Troponin T 0.115ug/L (0.0-0.011) Pro-B-Type Natriuretic Peptide 3596pg/mL (0-738) Total Protein 7.6g/dL (6.4-8.4) Albumin 3.8g/dL (3.4-5.0) Procalcitonin 0.29ng/mL (0.00-0.08) Urine Color Yellow (YELLOW) Urine Appearance Clear (CLEAR,HAZY) Urine pH 6.0 (5.0-8.0) Urine Specific [place] 1.030 (1.003-1.035) Urine Protein 100mg/dL (NEG,TRACE) Urine Glucose (UA) 1000mg/dL (NEGATIVE) Urine Ketones 15mg/dL (NEGATIVE) Urine Occult Blood Moderate (NEGATIVE) Urine Nitrite Negative (NEGATIVE) Urine Bilirubin Negative (NEGATIVE) Urine Urobilinogen Normalmg/dL (NORMAL) Urine Leukocyte Esterase Negative (NEGATIVE) Urine RBC 3-10/hpf (0-2) Urine WBC 0-5/hpf (0-5) Urine Epithelial Cells Few/hpf (NONE-MOD) Urine Crystals Uric acid crystals (NONE Urine Bacteria None/hpf (NONE-FEW) Urine Hyaline Casts None/lpf (NONE) Urine Granular Casts None seen (NONE SEEN) Urine Waxy Casts None seen (NONE SEEN) Urine Red Blood Cell Casts None seen (NONE SEEN) Urine White Blood Cell Casts None seen (NONE SEEN) Urine Mucus None seen (None Seen) Urine Trichomonas None seen (NONE SEEN) Urine Yeast None (NONE SEEN) Urinalysis Comment None Urine Culture Reflexed Not indicated Lactic Acid Level 1.3mmol/L (0.4-2.0) Pulse Oximetry Interpretation Pulse Oximetry Interpretation: 97% on 3L O2 Pulse Oximetry: Pulse Ox normal, On nasal cannula ECG Interpretation ECG Interpretation: Sinus tachycardia, rate 139 LBBB When compared to ECG 09/11/2016 LBBB is not new, however patient is now tachycardic. Time: 15:42 Interpreted by: ED physician X-Ray Chest Interpretation Chest Xray Interpretation: IMPRESSION: Findings consistent with new left midlung pneumonia. Dictated by: Josh Ding M.D. on 09/28/2016 at 16:41 Approved by: Josh Ding M.D. on 09/28/2016 at 16:42 View: Portable, 1 view Interpretation / Wet Read by: Interpret - Radiologist Re-Eval/Medical Decision Med Decision/Clinical Course 81 year old female with a history of CVA, diabetes, and COPD presents to the ER via EMS due to fever (102.1F at home) and altered mental status. History is limited due to patient's mental status. No friends or family members are present for interview. Upon arrival the patient is tachycardic with a heart rate in the 130s though stable blood pressure. She is tachypneic and in respiratory distress. She is confused and unable to provide any significant history. Patient was placed on 3 L of supplemental oxygen by nasal cannula. IV access was obtained and laboratory studies were sent. Chest x-ray demonstrated new left middle lobe pneumonia. I administered a 3 L fluid bolus and started the patient on vancomycin and Zosyn. Laboratory studies were notable as below: UA unconvincing for UTI Lactic acid 1.3 Troponin 0.115 BNP 3596 Pro calcitonin 0.29 Leukocytosis 21.1 markedly elevated from baseline Overall presentation consistent with sepsis secondary to bacterial pneumonia. I see no other obvious infectious source at this time and her presentation is unconvincing for acute surgical abdominal process or bacterial meningitis. I see no evidence of soft tissue infection. Urinalysis is relatively unremarkable. Patient's tachycardia improved though she remained critically ill. She is currently being treated with IV antibiotics and IV fluids. Her lactic acid is not significantly elevated. EKG was obtained as documented above. Of note patient's troponin was elevated at 0.115 though I suspect that this is likely related to demand ischemia in the setting of her sepsis. EKG demonstrates no ST elevation [place]. Patient was discussed with hospitalist except to CCU for further management. Source of Hx: Old records Time of Eval: 16:03 Re-Evaluation/Progress Note: Completed physical examination. Time of Eval: 17:28 Re-Evaluation/Progress Note: Discussed lab and radiology results and need for admission. Consultation : Referral / Consult Name: Edmund Mendenhall MD Consulted With: Hospitalist Call Returned at: 17:28 Comprehensive Ophthalmologist: Agrees with eval, Agrees with plan, Accepts admit Counseled Regarding: Diagnosis, Lab results, Need for admission Discharge & Departure Primary Impression: Sepsis Sepsis type: sepsis due to unspecified organism Qualified Code: A41.9 - Sepsis, unspecified organism Additional Impressions: Pneumonia Pneumonia type: due to unspecified organism Laterality: left Lung location : lower lobe of lung Qualified Code: J18.9 - Pneumonia, unspecified organism Tachycardia Hypoxia Respiratory distress Disposition: ADMITTED TO HOSPITAL Discharge Condition All VS Reviewed: Yes Condition: Stable Referrals: Danis Chung MD (PCP) Crit Care Except Billable Proc Time Spent: 105-134 minutes Services Performed: Patient management by me, Time spent at bedside, Reviewing test results, Reviewing imaging, Discussing patient care, Documentation in record, Time with fam/surrogate Scribe Attestation Portions of this note were transcribed by Janak Bone. I, Dr. Arredondo, personally performed the history, physical exam and medical decision-making; I reviewed and confirmed the accuracy of the information in the transcribed note. Signed by: Lily Jay, 09/28/2016 and 17:28 copies to: Danis Chung MD, Beck O MD Sep 28, 2016 15:25 JANAK BONE Sep 28, 2016 15:49
[2016-09-28 15:46] LABS: BASOPHILS % (AUTO) 0.1 % (0-3); EOSINOPHILS % (AUTO) 0 % (0-5); MONOCYTES % (AUTO) 8.1 % (4-12); Mean Corpuscular Hemoglobin 28.8 pg (27.0-35.0); Mean Corpuscular Volume 84.8 fL (81-100); NEUTROPHILS % (AUTO) 82.9 % (40-74); Platelet Count 244 bil/L (150-400)
[2016-09-28] MEDS ORDERED: Ondansetron 2 mg/mL 2 mL Inj IVPUSH PRN ×2 (16:00→17:30)
[2016-09-28] MEDS ORDERED: Alum-Mag Hydrox-Simeth 30 mL Suspension PO PRN ×2 (16:00→17:30)
[2016-09-28 16:12] LABS: APPEARANCE,URINE CLEAR (CLEAR,HAZY); COLOR,URINE YELLOW (YELLOW); OCCULT BLOOD,URINE MODERATE (NEGATIVE); UROBILINOGEN,URINE NORMAL (NORMAL)
[2016-09-28 16:19] LABS: TROPONIN T 0.115 ug/L (0.0-0.011)
--- NOTE | 2016-09-28 16:44 | DRSVH ---
PROCEDURE: X-RAY CHEST ONE VIEW, PORTABLE ([id number]) INDICATIONS: 81 year-old female with pneumonia. TECHNIQUE: One view of the chest was acquired. COMPARISON: [facility], CR, XR CHEST 1VW (PORTABLE), 09/11/2016, 8:54. [facility], CR, XR CHEST 1VW (PORTABLE), 01/13/2016, 20:20. [facility], CR, CHEST 1VW (PORTABL E), 12/28/2014, 11:39. FINDINGS: Surgical changes and devices: None. Lungs and pleura: No pleural effusions or pneumothorax. There is new left midlung airspace opacity. Right lung remains clear. Mediastinum: Mediastinal contours appear normal. Heart size is normal. Bones and chest wall: No suspicious bony lesions. Overlying soft tissues appear unremarkable. IMPRESSION: Findings consistent with new left midlung pneumonia. Dictated by: Josh Ding M.D. on 09/28/2016 at 16:41 Approved by: Josh Ding M.D. on 09/28/2016 at 16:42
[2016-09-28] MEDS ORDERED: Vancomycin Dose per Pharmacist XX ONE (16:55)
[2016-09-28] MEDS ORDERED: Piperacillin-Tazo 3.375 Gm Inj 3.375 GM in Dextrose 5% Minibag Plus 50 ML IV ONE (16:55)
[2016-09-28] MEDS ORDERED: 0.9% Sodium Chloride 1,000 ML IV SCH (17:26)
[2016-09-28] MEDS ORDERED: Vancomycin Inj 1,500 MG in 0.9% Sodium Chloride 500 ML IV ONE (17:30)
[2016-09-28] MEDS ORDERED: Polyethylene Glycol (PEG) 17 Gm Powder PO PRN (17:30)
--- NOTE | 2016-09-28 19:08 | PCM.CONPHA ---
Subjective Date of Service: Sep 28, 2016 Reason for Pharmacy Consult: Vancomycin Dosing Objective Vital Signs Date Time Temp Pulse Resp B/P Pulse Ox O2 Delivery O2 Flow Rate FiO2 09/28/16 17:49 114 33 143/80 96 Nasal Cannula 4 09/28/16 17:12 122 23 129/66 93 Room Air 09/28/16 16:15 125 38 146/73 95 Nasal Cannula 3 09/28/16 15:35 37.2 132 29 143/83 97 Nasal Cannula 3 Weight (Kilograms): 77.27 Height (Feet): 5 Height (Inches): 4.5 Test 09/28/16 15:30 09/28/16 15:50 09/28/16 15:56 White Blood Count 21.1th/mm3 (3.8-10.1) Red Blood Count 5.25mil/mm3 (3.90-5.20) Hemoglobin 15.1g/dL (12.0-15.6) Hematocrit 44.5% (35.0-46.0) Mean Corpuscular Volume 84.8fL (81-100) Mean Corpuscular Hemoglobin 28.8pg (27.0-35.0) Mean Corpuscular Hemoglobin Concent 33.9% (32.0-37.0) Red Cell Distribution Width 13.5% (12.3-15.4) Platelet Count 244bil/L (150-400) Neutrophils (%) (Auto) 82.9% (40-74) Lymphocytes (%) (Auto) 8.6% (14-46) Monocytes (%) (Auto) 8.1% (4-12) Eosinophils (%) (Auto) 0% (0-5) Basophils (%) (Auto) 0.1% (0-3) Sodium Level 131mEq/L (134-144) Potassium Level 4.3mEq/L (3.5-5.2) Chloride Level 93mEq/L (97-108) Carbon Dioxide Level 18mmol/L (18-29) Blood Urea Nitrogen 20mg/dL (8-27) Creatinine 0.53mg/dL (0.57-1.00) Estimat Glomerular Filtration Rate 159mL/min (>59) Glucose Level 286mg/dL (60-99) Calcium Level 9.4mg/dL (8.5-10.1) Total Bilirubin 0.9mg/dL (0.0-1.2) Aspartate Amino Transf (AST/SGOT) 17U/L (0-50) Alanine Aminotransferase (ALT/SGPT) 13U/L (0-32) Alkaline Phosphatase 90U/L (25-165) Troponin T 0.115ug/L (0.0-0.011) Pro-B-Type Natriuretic Peptide 3596pg/mL (0-738) Total Protein 7.6g/dL (6.4-8.4) Albumin 3.8g/dL (3.4-5.0) Procalcitonin 0.29ng/mL (0.00-0.08) Urine Color Yellow (YELLOW) Urine Appearance Clear (CLEAR,HAZY) Urine pH 6.0 (5.0-8.0) Urine Specific [place] 1.030 (1.003-1.035) Urine Protein 100mg/dL (NEG,TRACE) Urine Glucose (UA) 1000mg/dL (NEGATIVE) Urine Ketones 15mg/dL (NEGATIVE) Urine Occult Blood Moderate (NEGATIVE) Urine Nitrite Negative (NEGATIVE) Urine Bilirubin Negative (NEGATIVE) Urine Urobilinogen Normalmg/dL (NORMAL) Urine Leukocyte Esterase Negative (NEGATIVE) Urine RBC 3-10/hpf (0-2) Urine WBC 0-5/hpf (0-5) Urine Epithelial Cells Few/hpf (NONE-MOD) Urine Crystals Uric acid crystals (NONE Urine Bacteria None/hpf (NONE-FEW) Urine Hyaline Casts None/lpf (NONE) Urine Granular Casts None seen (NONE SEEN) Urine Waxy Casts None seen (NONE SEEN) Urine Red Blood Cell Casts None seen (NONE SEEN) Urine White Blood Cell Casts None seen (NONE SEEN) Urine Mucus None seen (None Seen) Urine Trichomonas None seen (NONE SEEN) Urine Yeast None (NONE SEEN) Urinalysis Comment None Urine Culture Reflexed Not indicated Lactic Acid Level 1.3mmol/L (0.4-2.0) Assessment/Plan Assessment/Plan Vanco per Rx Indication: Sepsis/PNA Goal Trough: 15-20; Vd 54 Adonay 0.044; T1/2 15.75 LD 1500mg then 1000mg q18h; will draw early trough ( pt due to age) befoe 3rd dose on 09/30/16 @ 0530 am Oscar Voss PharmD Sep 28, 2016 19:08
[2016-09-28] MEDS ORDERED: MethylprednisoLONE Sodium Succinate 62.5 mg/mL 2 mL Inj IVPUSH ONE (20:45)
--- NOTE | 2016-09-28 21:00 | NUR ---
Admission note Pt admitted with fever/shortness of breath. She repeatedly asks for a breathing trx due to SOB. Pt appears anxious. Reported pt's symptoms to MD Breathing trx ordered. HOB elevated to promote improved oxygenation. Pulse oximetry at 96% on 2LNC Reviewed plan of care with patient and pt's room mate Pt verbalized understanding.
[2016-09-28] MEDS ORDERED: Glucose 40% Oral Gel 15 Gm Tube PO PRN (21:50)
[2016-09-28] MEDS: Albuterol-Ipratropium 3 mL Inhalation Solution NEB SCH (21:53)
--- NOTE | 2016-09-28 22:30 | PCM.HPMED ---
Subjective Date of Service Sep 28, 2016 Primary Provider: Admitting Physician: Edmund Mendenhall MD Primary Care Physician: Danis Chung MD Attending Physician: Edmund Mendenhall MD Admit Status: From the Emergency Department, Full Admit, [facility] Telemetry Chief Complaint: Confusion with fever at home History of Present Illness: Brigette Hugo is a 81 year old female with COPD, asthma, hyperlipidemia, hypertension, diabetes mellitus, and CVA who was presents to the [facility] Emergency department via EMS due to fever (102.1F at home) and altered mental status. History is limited due to patient's confusion. Her caregiver who is also her room mate reported that the patient was doing well last night but it was this morning that she states "I fell like crap", She was short of breathe, coughing with phlegm (unclear of the color or description) and also some confusion (she kept changing the channel and was not herself). She initially refused to come to the hospital but then this afternoon the caregiver checked on her and her symptoms got worst. Patient states she is on a tapering dose of Prednisone and she was doing it wrong. She was recently hospitalized and was diagnosed with Influenza A and coronavirus and completed a course of Tamiflu and steroids. Case discussed with Dr Arredondo, meeting sepsis criteria with left sided pneumonia. Plan to admit Review of Systems: unable to be obtained due to confusion Allergies Coded Allergies: lidocaine (Verified Allergy, Mild, 09/11/16) Seizure amlodipine (Verified Allergy, Unknown, EDEMA, 09/11/16) ciprofloxacin (Verified Allergy, Unknown, 09/11/16) lisinopril (Verified Allergy, Unknown, COUGH, 09/11/16) metformin (Verified Allergy, Unknown, Diarrhea, 09/11/16) sulfanilamide (Verified Allergy, Unknown, 09/11/16) Home Medications From recent Discharge Summary, not yet confirmed Aspirin (Aspirin) 81 Mg Tablet 162 MG PO DAILY Prescribed by: GAVIN MASSEY MD Atorvastatin (Lipitor) 40 Mg Tablet 40 MG PO DAILY Prescribed by: GAVIN MASSEY MD Budesonide Neb Soln (Budesonide Neb Soln) 0.5 Mg/2 Ml Neb 0.5 MG INHALATION BID (Reported) Bupropion (Bupropion) 75 Mg Tablet 75 MG PO BID (Reported) Cholecalciferol (Vitamin D3) (Vitamin D3) 5,000 Unit Tablet 5,000 UNIT PO DAILY (Reported) Denosumab (Prolia) 60 Mg/1 Ml Syringe 60 MG SQ [id number] (Reported) Formoterol Fumarate (Perforomist) 20 Mcg/2 Ml Vial.neb 20 MCG IH BID (Reported) Losartan Potassium (Cozaar) 100 Mg Tablet 100 MG PO DAILY (Reported) Methocarbamol (Methocarbamol) 500 Mg Tablet Unknown Dose PO HS (Reported) Mirtazapine (Mirtazapine) 15 Mg Tablet 15 MG PO HS (Reported) NPH, Human Insulin Isophane (HUMulin-N U100 Insulin Kwikpen) 100 Unit/1 Ml Insuln.pen 14-20 UNIT SUBQ TID (Reported) Oseltamivir Phosphate (Tamiflu) 10 Cap/Pkg Capsule 75 MG PO BID Prescribed by: SRIDEVI NEVAREZ DO Potassium Chloride ER (Potassium Chloride ER) 10 Meq Tablet 20 MEQ PO DAILY WITH FOOD (Reported) TAKE WITH FOOD Prednisone (Deltasone) 20 Mg Tablet 40 MG PO DAILY take 1 pill daily, starting tomorrow (09/14) Prescribed by: SRIDEVI NEVARZE DO Triamterene/HCTZ 37.5-25 mg (Triamterene/HCTZ 37.5-25 mg) 1 Each Capsule 1 CAPSULE PO DAILY (Reported) As needed Albuterol Neb Soln (Albuterol Neb Soln) 2.5 Mg/3 Ml Vial.neb 2.5 MG INHALATION Q4H PRN PRN For Shortness of Breath (Reported) PMH Diverticulosis Diverticulitis COPD Asthma Hyperlipidemia Depression Osteoporosis Shoulder dislocation in 2006 HTN Type 2 Diabetes Fibromyalgia Peroneal Tendonitis Ovarian cyst Esophageal spasm H/o CVA . Surgical History Back surgery Abd surgery for ruptured ovarian cyst Laminectomy L4-L5 Peroneal tendon repair, left side Family History Mother had a cerebral hemorrhage. She has an aunt and uncle suffering from hemorrhagic strokes. Father also had brain bleed at 90 which he from. Family history of Dm2 Social History Hx Alcohol Use: No Hx Substance Use: No Hx Tobacco Use: Yes Smoking Status: Former Smoker Living Arrangement: Alone (with caregiver living in with her) Exam Vital Signs Vital Sign - Last Date Time Temp Pulse Resp B/P Pulse Ox O2 Delivery O2 Flow Rate FiO2 09/28/16 21:11 96 Nasal Cannula 2.00 09/28/16 19:55 36.4 103 31 115/76 Exam General: Alert, Confused with delayed response, Cooperative, Moderate respiratory distress with tachypnea and few words sentences Eyes: PERRLA, Scleral Anicteric Mouth: Mouth Normal, Mucous Membranes Moist/[place] Neck: Supple, no Thyromegaly, trachea central. Chest & Lungs: Left base crackles with decreased breathe sounds, expiratory wheezing noted Cardiovascular: Normal S1, Normal S2, No Murmurs/Rubs/Gallops, Regular Rate/ Rhythm, (No JVD, no peripheral edema) Pulses: Radial (present and equal), Dorsalis Pedi (present and equal) Abdomen: Soft, Non-tender, Non-distended, Normoactive bowel tones. Musculoskeletal: Unremarkable. Normal range of motion, no swollen or erythematous joints Extremities: No edema, no cyanosis, no clubbing. Skin: No rashes. Warm and dry, no erythematous areas Neurological: Grossly neurologically intact, Normal Speech, Sensation Intact Lymphatic: Lymph nodes Cervical and Axillary not palpable. Lab and Diagnostics Labs Laboratory Tests Test 09/28/16 15:30 09/28/16 15:50 09/28/16 15:56 White Blood Count 21.1th/mm3 (3.8-10.1) Red Blood Count 5.25mil/mm3 (3.90-5.20) Hemoglobin 15.1g/dL (12.0-15.6) Hematocrit 44.5% (35.0-46.0) Mean Corpuscular Volume 84.8fL (81-100) Mean Corpuscular Hemoglobin 28.8pg (27.0-35.0) Mean Corpuscular Hemoglobin Concent 33.9% (32.0-37.0) Red Cell Distribution Width 13.5% (12.3-15.4) Platelet Count 244bil/L (150-400) Neutrophils (%) (Auto) 82.9% (40-74) Lymphocytes (%) (Auto) 8.6% (14-46) Monocytes (%) (Auto) 8.1% (4-12) Eosinophils (%) (Auto) 0% (0-5) Basophils (%) (Auto) 0.1% (0-3) Sodium Level 131mEq/L (134-144) Potassium Level 4.3mEq/L (3.5-5.2) Chloride Level 93mEq/L (97-108) Carbon Dioxide Level 18mmol/L (18-29) Blood Urea Nitrogen 20mg/dL (8-27) Creatinine 0.53mg/dL (0.57-1.00) Estimat Glomerular Filtration Rate 159mL/min (>59) Glucose Level 286mg/dL (60-99) Calcium Level 9.4mg/dL (8.5-10.1) Total Bilirubin 0.9mg/dL (0.0-1.2) Aspartate Amino Transf (AST/SGOT) 17U/L (0-50) Alanine Aminotransferase (ALT/SGPT) 13U/L (0-32) Alkaline Phosphatase 90U/L (25-165) Troponin T 0.115ug/L (0.0-0.011) Pro-B-Type Natriuretic Peptide 3596pg/mL (0-738) Total Protein 7.6g/dL (6.4-8.4) Albumin 3.8g/dL (3.4-5.0) Procalcitonin 0.29ng/mL (0.00-0.08) Urine Color Yellow (YELLOW) Urine Appearance Clear (CLEAR,HAZY) Urine pH 6.0 (5.0-8.0) Urine Specific [place] 1.030 (1.003-1.035) Urine Protein 100mg/dL (NEG,TRACE) Urine Glucose (UA) 1000mg/dL (NEGATIVE) Urine Ketones 15mg/dL (NEGATIVE) Urine Occult Blood Moderate (NEGATIVE) Urine Nitrite Negative (NEGATIVE) Urine Bilirubin Negative (NEGATIVE) Urine Urobilinogen Normalmg/dL (NORMAL) Urine Leukocyte Esterase Negative (NEGATIVE) Urine RBC 3-10/hpf (0-2) Urine WBC 0-5/hpf (0-5) Urine Epithelial Cells Few/hpf (NONE-MOD) Urine Crystals Uric acid crystals (NONE Urine Bacteria None/hpf (NONE-FEW) Urine Hyaline Casts None/lpf (NONE) Urine Granular Casts None seen (NONE SEEN) Urine Waxy Casts None seen (NONE SEEN) Urine Red Blood Cell Casts None seen (NONE SEEN) Urine White Blood Cell Casts None seen (NONE SEEN) Urine Mucus None seen (None Seen) Urine Trichomonas None seen (NONE SEEN) Urine Yeast None (NONE SEEN) Urinalysis Comment None Urine Culture Reflexed Not indicated Lactic Acid Level 1.3mmol/L (0.4-2.0) Microbiology 09/28/16 Blood Culture, Received Pending Result Diagram: 09/28/16 1530 09/28/16 1530 X-Rays, CTs and MRIs X-RAY CHEST ONE VIEW, PORTABLE 09/28 IMPRESSION: Findings consistent with new left midlung pneumonia. Dictated by: Josh Ding M.D. on 09/28/2016 at 16:41 Approved by: Josh Ding M.D. on 09/28/2016 at 16:42 Assessment & Plan Brigette Hugo is a 81 year old female with COPD, asthma, hyperlipidemia, hypertension, diabetes mellitus, and CVA who was presents to the [facility] Emergency department via EMS due to Sepsis due to pneumonia 1. Acute Severe Sepsis. Present on admission Meeting criteria with tachycardia, leukocytosis and pulmonary source with pneumonia. Organ dysfunction with encephalopathy - Lactic acid normal - Sepsis protocol initiated - monitor for advancement to septic shock 2. Healthcare associated pneumonia. Present on admission Meeting criteria with recent admission within last 90 days. High risk for MRSA and Pseudomonal infection. - Immunocompromised state with recent insult from Viral infection Influenza and luevano virus - Vancomcyin and Zosyn IV for empiric antibiotics - consider Infectious disease consult to aid with antibiotics de escalation - Blood cultures, sputum analysis 3. Acute Encephalopathy. Present on admission - Due to Sepsis. - treat underlying sepsis - high risk for delirium, avoid psychoactive medications 4. Possible Acute Exacerbation of COPD secondary to pneumonia. Present on admission - steroids with Solu-Medrol IV 125 mg IV - Albuterol treatments scheduled - oxygen supplementation 5. Atrial flutter, Chronic currently rate controlled - monitor on telemetry 6. Type 2 Diabetes, requiring Insulin - high correction Lispro algorithm - resume outpatient insulin regimen 7. Hyperlipidemia, - Continue atorvastatin 8. Depression - continue Mirtazapine daily at bedtime, bupropion twice a day 9. Hypertension - Continue all medications: Losartan, triamterene/hydrochlorothiazide, - Acetaminophen as needed for mild pain/fever/headache - Bowel regimen as needed - Antiemetic as needed Patient admitted under inpatient status with expected length of stay > 2 midnights for severity of present symptoms, complexities of treatment plan and risk for adverse event . Resuscitation Status: CPR: Attempt Resuscitation Edmund Mendenhall MD Sep 28, 2016 21:51
[2016-09-28] MEDS: 0.9% Sodium Chloride 1,000 ML IV SCH (22:32)
--- NOTE | 2016-09-28 23:15 | NUR ---
SOB Pt continued to complain of SOB until her breathing trx arrived via RT Following breathing trx pt stated she felt much "better". Remains at 95% on 2 LNC
--- NOTE | 2016-09-28 23:34 | NUR ---
Transfer Pt transferred to 3007. Report given to Cleo Davis
--- NOTE | 2016-09-28 23:35 | NUR ---
Med Rec [facility] notified that [facility] would like her most recent med list. NPH dose unclear.
[2016-09-28] MEDS: Insulin LISPRO 300 Unit/3 mL Inj SUBQ SCH (23:43)
[2016-09-29] VITALS (12 sets, daily range): BP systolic 109–136; BP diastolic 58–79; PULSE 76–98; RESP 16–22; O2SAT 92–97
[2016-09-29] MEDS ORDERED: Piperacillin-Tazo 3.375 Gm Inj 3.375 GM in Dextrose 5% Minibag Plus 50 ML IV SCH (00:30)
[2016-09-29] MEDS: Albuterol 2.5 mg/3 mL Inhalation Solution NEB SCH ×6 (00:30→20:30)
[2016-09-29] MEDS: Piperacillin-Tazo 3.375 Gm Inj 3.375 GM in Dextrose 5% Minibag Plus 50 ML IV SCH ×3 (02:15→19:21)
[2016-09-29] MEDS: Heparin 5,000 Unit/mL Inj SUBQ SCH ×3 (02:15→17:34)
[2016-09-29] MEDS: 0.9% Sodium Chloride 1,000 ML IV SCH ×3 (06:09→14:00)
[2016-09-29 06:37] LABS: BASOPHILS % (AUTO) 0.3 % (0-3); EOSINOPHILS % (AUTO) 0.8 % (0-5); Mean Corpuscular Hemoglobin 29.4 pg (27.0-35.0); NEUTROPHILS % (AUTO) 89.7 % (40-74); Platelet Count 168 bil/L (150-400)
--- NOTE | 2016-09-29 07:45 | NUR ---
[place] [facility] on unit #[id number] via stretcher with all personal belongings. Unable to transfer self to bed. VSS. Bed locked, low position. Call light within reach. Cooperative with care.
--- NOTE | 2016-09-29 07:46 | NUR ---
Nausea Pt vomited while being [place] [facility] Continued to complain of nausea. Administered Zofran 4mg, effective. No further complaints of nausea. Will continue to monitor.
[2016-09-29] MEDS: Albuterol-Ipratropium 3 mL Inhalation Solution NEB SCH ×5 (10:37→19:56)
[2016-09-29] MEDS: Insulin LISPRO 300 Unit/3 mL Inj SUBQ SCH ×4 (10:38→20:57)
[2016-09-29] MEDS ORDERED: Ipratropium 0.02% 0.5 mg/2.5 mL Inhalation Solution NEB ONE (12:26)
[2016-09-29] MEDS ORDERED: Insulin GLARgine 100 Unit/mL Syringe SUBQ ONE (14:10)
[2016-09-29] MEDS ORDERED: Vancomycin Inj 1,000 MG in IV Premix 1 EACH IV SCH (15:00)
--- NOTE | 2016-09-29 19:20 | CONS ---
[address] [address] CONSULTATION REPORT PATIENT: NUNO ALATORRE : 1935 MR#: [id number] ADMIT: 09/28/2016 JOB ID: [id number] DATE OF SERVICE: 09/29/[address] Cam for this consult. REASON FOR CONSULTATION: Left-sided pneumonia in an elderly woman with underlying COPD. HISTORY OF PRESENT ILLNESS: The patient is an 81-year-old woman who lives with a caregiver in the [facility]. She is usually fairly independent but is somewhat limited by her fairly severe COPD. She often is on oral steroids though not continuously and uses a wide variety of inhalers. She was hospitalized here from September 11 to September 13 with acute respiratory difficulty. During the course of that evaluation, it was found that she was having a very severe COPD exacerbation which was precipitated by a combination of influenza A and luevano virus which were determined by the multiplex PCR. She was also found to be in AFib/flutter with high cardiac rates and was admitted, evaluated and did very well. She was discharged home in improved condition on September 13. She then reports that she developed the acute onset of high fever and altered mental status yesterday, September 28. Because of the fever, altered mental status and a worse than normal productive cough, her caregiver summoned help and she was brought here and admitted. Today, her mental status is much clearer and she reports that this sudden development of fevers, chills, increasing cough, worsening shortness of breath and confusion was relatively sudden. She has only been here a day or so now and has received IV hydration and the beginnings of a course of IV antibiotics and she is already dramatically improved. This afternoon, she still has a cough which is quite severe and is sometimes productive of yellow sputum. She no longer notes any fevers or chills today and notes that her mental status is back to normal. Her memory of what happened yesterday is a bit limited. She has no acute GI or symptoms. PAST MEDICAL HISTORY: 1. COPD. 2. Hypertension. 3. Hyperlipidemia. 4. Diabetes. 5. History of CVA. 6. History of diverticular disease. 7. Back surgery for chronic back pain. SOCIAL HISTORY: The patient is a former smoker but no longer. She does not drink and lives with a caregiver. FAMILY HISTORY: Notable for diabetes mellitus in multiple relatives as well as a mother with cerebral hemorrhage. Both her mother and father had cerebral hemorrhage and in her father's case this caused his . There is no family history of TB. REVIEW OF SYSTEMS: Was done. The patient states at this time she has no significant headache though she often is troubled by headache around her right ear. She has no acute visual change. No sore throat. She does have a cough productive of yellowish sputum. She has some left pleuritic chest pain which is new. No nausea, vomiting, diarrhea, or dysuria. Remainder of the review of systems is noncontributory or negative. PHYSICAL EXAMINATION: Reveals an elderly woman in no acute distress. Temp 36.7, pulse 98, respiratory rate 20, blood pressure 117/60. She is saturating well on 3 L. Examination of the head reveals no evidence of trauma. The eyes without conjunctivitis. Oral cavity: No thrush or hairy leukoplakia. Neck without adenopathy and is reasonably supple. The preauricular areas where she sometimes has pain are free of any notable abnormality. The lung exam is notable for decreased breath sounds bilaterally with scattered wheezes. A few rales are heard primarily in the left lower lung field. The back is without notable abnormality. The abdomen is soft and nontender. No significant rash is noted. The patient's mental status was clear today and she asked very sharp questions. Physical exam was a bit truncated because the patient was sitting up beside her bed and trying to finish dinner so I could not perform much of the rest of the exam. LABORATORIES: Include a white blood count 11,800, was 21,000 yesterday. There is a considerable left shift. Creatinine is 0.48. LFTs are normal. Albumin 2.9. Urinalysis without white cells. Urine Legionella and pneumococcal antigens are negative. Sputum Gram stain today shows moderate polys with some normal jun. Blood cultures negative. Urine Legionella and pneumococcal antigens negative. In reviewing the records from the last admission. She had the multiplex PCR that was positive for influenza A and luevano virus. Blood cultures were negative at that time. The patient's chest x-ray from last time shows COPD and that was about two weeks ago. This time, there is a large left mid lung round infiltrate which is clearly new. IMPRESSION: This patient is admitted with what clearly seems to be a post influenza pneumonia. The two most common bacteria causing a post influenza pneumonia are strep pneumoniae and Staphylococcus aureus. Either would be operational here and, of course, the patient could also have H. flu, Moraxella or some other chronic obstructive pulmonary disease-associated post viral pneumonia. So far, we are waiting on her MRSA screen, but I do not think I would initially treated with vancomycin as toxicity is likely to exceed the benefit. RECOMMENDATIONS: 1. This case discussed with Dr. Cam at the bedside. 2. I would continue with azithromycin and Zosyn as has been started at this time. 3. Depending on what we get her cultures, we can hopefully narrow down her antibiotics and perhaps even get her out of the hospital fairly quickly as she seems to be improving at a rapid rate. 4. I will follow up with this patient and with the team again tomorrow.
--- NOTE | 2016-09-29 20:19 | PCM.PNMED ---
Subjective Date of Service Sep 29, 2016 Subjective Patient is a 81 year old female with COPD, asthma, hyperlipidemia, hypertension , diabetes mellitus, and CVA who was presents to the [facility] ED via EMS with high fever (102.1F) and altered mental status. Admitted for sepsis criteria with left sided pneumonia. Hospital day 2. No acute overnight events. This morning, she states she does not feel better. Her main complaint is difficulties with breathing. Exam Vital Signs Vital Sign - Last Date Time Temp Pulse Resp B/P Pulse Ox O2 Delivery O2 Flow Rate FiO2 09/29/16 18:08 36.6 91 17 136/79 92 Room Air 09/29/16 15:50 3.00 Intake and Output 09/28/16 09/28/16 09/29/16 Cumulative From/Thru 15:00 23:00 07:00 09/28/16 15:35 - 09/29/16 06:00 Intake Total 500 ml 240 ml 740 ml Output Total 50 ml 50 ml Balance 500 ml 190 ml 690 ml Intake Oral 240 ml 240 ml IV Total 500 ml 500 ml Output Emesis 50 ml 50 ml # Voids 2 2 # Bowel Movements 0 0 Exam General: alert, a little confused but cooperative Eyes: PERRL, sclera anicteric Mouth: mucous membranes moist Neck: supple, no thyromegaly Lungs: left base crackles w/decreased breath sounds with some expiratory wheezing Heart: RRR, no murmurs appreciated Abdomen: soft, nontender Extremities: no edema, cyanosis, clubbing IVs and Medications IV Fluids NS IV @ 125 mls/hr Medications Reviewed: Medications were reviewed in detail Lab and Diagnostics Result Diagram: 09/29/16 0545 09/29/16 1653 X-Rays, CTs and MRIs X-RAY CHEST ONE VIEW, PORTABLE 09/28 IMPRESSION: Findings consistent with new left midlung pneumonia. Dictated by: Josh Ding M.D. on 09/28/2016 at 16:41 Approved by: Josh Ding M.D. on 09/28/2016 at 16:42 Assessment & Plan 1. Acute Severe Sepsis, poa, improving Meeting criteria with tachycardia, leukocytosis and pulmonary source with pneumonia. Organ dysfunction with encephalopathy - Lactic acid normal - Sepsis protocol initiated - monitor for advancement to septic shock 2. Healthcare associated pneumonia, poa, active Meeting criteria with recent admission within last 90 days. High risk for MRSA and Pseudomonal infection - Immunocompromised state with recent insult from Viral infection Influenza and luevano virus - Leukocytosis, procalcitonin 0.29, febrile, left midlung consolidation on X-ray - Continue with Azithromycin and Zosyn IV, stop Vancomycin (per Dr. Ashley) - Awaiting blood cultures, sputum analysis, MRSA screen. Strep. pneum. Ag urine negative 3. Possible Acute Exacerbation of COPD secondary to pneumonia, poa, active - Solu-Medrol IV 125 mg IV once received in ED - Start Prednisone 40 mg PO qd - Albuterol treatments scheduled - Oxygen supplementation 4. Elevated troponin, poa, improving - Most likely d/t sepsis - 0.115 on admission, 0.086 now - Continue to monitor 5. Type 2 Diabetes, requiring Insulin, poa, active - Lantus 15 units hs daily 6. Acute Encephalopathy, poa, improving - Due to Sepsis, continue to treat underlying cause - High risk of delirium, avoid psychoactive medications Chronic conditions: Atrial flutter, chronic, stable - Currently rate controlled, monitor on telemetry Hyperlipidemia, - Continue atorvastatin Depression - continue Mirtazapine daily at bedtime, bupropion twice a day Hypertension - Continue all medications: Losartan, triamterene/hydrochlorothiazide, - Acetaminophen as needed for mild pain/fever/headache - Bowel regimen as needed - Antiemetic as needed Patient admitted under inpatient status with expected length of stay > 2 midnights for severity of present symptoms, complexities of treatment plan and risk for adverse event . VTE Prophylaxis: Sub-Q Heparin (Unfractionated) Resuscitation Status: CPR: Attempt Resuscitation Attending Statement The patient was seen and examined together with Dr. Lion on 09-29-16 and I agree with the history, exam and plan as outlined in the note above. Patient is on IV Vancomycin for today. Zeinab Lion DO Sep 29, 2016 19:44 Kasi Loyd MD Sep 30, 2016 08:17
--- NOTE | 2016-09-29 20:52 | NUR ---
ELEVATED BLOOD GLUCOSE READING P- PT BLOOD GLUCOSE READING WAS 396 MG/DL I- ADMINISTERED CORRECTIONAL HUMALOG PER SLIDING SCALE WELL LONG ACTING LANTUS E- PT ATE DINNER AND WAS FEELING BETTER. NEXT BLOOD GLUCOSE READING WAS DOWN TO 340 MG/DL SAFETY- CALL LIGHT WITHIN REACH, BED IN THE LOW AND LOCKED POSITION, 2 SIDE RAILS UP.
[2016-09-30] VITALS (13 sets, daily range): BP systolic 106–139; BP diastolic 47–78; PULSE 73–97; RESP 16–24; O2SAT 92–97
[2016-09-30] MEDS: Albuterol-Ipratropium 3 mL Inhalation Solution NEB SCH ×6 (00:09→21:15)
[2016-09-30] MEDS: Albuterol 2.5 mg/3 mL Inhalation Solution NEB SCH ×6 (00:30→20:30)
[2016-09-30] MEDS: 0.9% Sodium Chloride 1,000 ML IV SCH ×2 (01:27→09:26)
[2016-09-30] MEDS: Heparin 5,000 Unit/mL Inj SUBQ SCH ×3 (01:41→17:10)
[2016-09-30] MEDS: Piperacillin-Tazo 3.375 Gm Inj 3.375 GM in Dextrose 5% Minibag Plus 50 ML IV SCH ×3 (02:56→18:14)
--- NOTE | 2016-09-30 05:29 | NUR ---
Cough and Shortness of breath Patient sitting on edge of bed after coughing fit. She states that she is having trouble breathing and that she cannot take a deep breath or sleep without coughing. Replaced nasal canula set to 3L. O2 sat was 96%. PRN neb treatments provide temporary relief. A one time order of Tessalon pears was given. Patient stated that medication relieved her cough.
[2016-09-30 06:29] LABS: BASOPHILS % (AUTO) 0.2 % (0-3); EOSINOPHILS % (AUTO) 0.4 % (0-5); Mean Corpuscular Hemoglobin 28.8 pg (27.0-35.0); Mean Corpuscular Volume 85.1 fL (81-100); NEUTROPHILS % (AUTO) 73.4 % (40-74); Platelet Count 172 bil/L (150-400)
[2016-09-30 06:55] LABS: TROPONIN T 0.074 ug/L (0.0-0.011)
[2016-09-30] MEDS ORDERED: KCl 40 mEq/D5W 500 mL 40 MEQ in IV Premix 500 EACH IV ONE ×2 (07:15→11:55)
[2016-09-30] MEDS ORDERED: predniSONE 20 mg Tablet PO SCH (08:30)
[2016-09-30] MEDS: Insulin LISPRO 300 Unit/3 mL Inj SUBQ SCH ×4 (08:50→21:46)
[2016-09-30] MEDS: Azithromycin Inj 500 MG in Dextrose 5% w/Vial Mate 250 ML IV SCH (08:52)
--- NOTE | 2016-09-30 10:08 | PROG NOTE ---
[address] [address] PROGRESS NOTE PATIENT: NUNO ALATORRE : 1935 MR#: [id number] ADMIT: 09/28/2016 JOB ID: [id number] DATE: 09/30/2016 INFECTIOUS DISEASE FOLLOW UP NOTE: REASON FOR FOLLOW UP: Left-sided post viral bacterial pneumonia. INTERVAL HISTORY: The patient reports that overnight she has been free of fevers or chills. She continues to be somewhat short of breath though it is improved over admission. She continues to need the nasal oxygen to avoid excessive shortness of breath and she reports she becomes quite dyspneic when she goes to the bathroom. She has a cough which is minimally productive. No GI symptoms and she just had a good breakfast. PHYSICAL EXAMINATION: Reveals an afebrile woman. Temperature 36.6, pulse 92, blood pressure 107/47. She is saturating well on 3 L. Examination of the oral cavity is unremarkable. Mental status is clear. Lungs with scattered rales on the left side. Cardiac tones: Regular rate and rhythm. Abdomen: Soft and nontender. No skin rash. LABORATORY STUDIES: White count has dropped all the way to normal now at 10,000 with normal differential. Creatinine is 0.64. LFTs are normal. Procalcitonin 0.52 minimally elevated. Urinalysis negative. Urine Legionella pneumophila negative. Blood cultures negative. Sputum culture is pending. MRSA screen negative. The chest x-ray done on the showed a left-sided infiltrate. IMPRESSION: This patient is improving with respect to her left-sided bacterial pneumonia which followed a previously documented viral pneumonia on an admission earlier this month. At this point, she is improving on broad-spectrum coverage and we certainly do not need coverage for MRSA. I would anticipate given her steady improvement that she might be ready to leave in the next day or two on oral antibiotics. At this point, she is receiving azithromycin IV and Zosyn IV as well. RECOMMENDATIONS: 1. I would continue with these antibiotics but the azithromycin could be switched to oral at any time. 2. Will closely watch the patient and if she looks good and has declining O2 requirements over the next day or two, she could probably go out on an oral amoxicillin to finish a week or so of therapy. Thank you very much and note this case discussed in person with Dr. Zeinab Lion.
--- NOTE | 2016-09-30 10:25 | NUR ---
Social Work Initial Assessment: SW met with patient at bedside to discuss discharge plan. Patient is an 81 year old female admitted on 09/28/16 for pneumonia and sepsis. Patient payer as Medicare and [employer]. Patient has no termite renewal inspector disability nor VA benefits. Patient PCP as MD Chung. Patient resides in with roommate Isaac, . Patient states emergency contact as julio cesar Garsia, who resides in [place]. Patient resides in a 2 story home with 17 steps to the second floor. Patient states pharmacy of choice as [facility]. Patient has no HHC history in past. Patient has no previous SNF history. Patient has a walker for use at home. Patient denied having AD. Patient states that HHC attempted to be established previously but patient didn't meet home bound criteria. Patient states roommate assists minimally with care needs at home and patient is primarily independent with care needs. SW contacted patient julio cesar Chairez to discuss discharge plans to verify above information and to discuss discharge concerns. SW will continue to follow to determine home safety with ambulation at discharge. SW to follow. PLAN: Home with roommate. Patient is independent with needs at home prior to admit. SW will continue to follow pending clinical course and safety home prior to discharge Consuelo BETANCOURT Addendum: 09/30/16 at 1056 by MAURICIO VAZQUEZ Amended: Links added.
--- NOTE | 2016-09-30 16:39 | PCM.PNMED ---
Subjective Date of Service Sep 30, 2016 Subjective Patient is a 81 year old female with COPD, asthma, hyperlipidemia, hypertension , diabetes mellitus, and CVA who was presents to the [facility] ED via EMS with high fever (102.1F) and altered mental status. Admitted for sepsis criteria with left sided pneumonia. Hospital day 3. No acute overnight events. This morning, she states she does feel a little better. She is still coughing but it is improving. Exam Vital Signs Vital Sign - Last Date Time Temp Pulse Resp B/P Pulse Ox O2 Delivery O2 Flow Rate FiO2 09/30/16 15:33 Supplement Oxygen 09/30/16 13:06 36.6 92 24 135/76 96 09/30/16 12:39 3.00 Intake and Output 09/29/16 09/29/16 09/30/16 Cumulative From/Thru 15:00 23:00 07:00 09/28/16 15:35 - 09/30/16 06:38 Intake Total 1548 ml 465 ml 1361 ml 4114 ml Output Total 800 ml 850 ml Balance 1548 ml -335 ml 1361 ml 3264 ml Intake Oral 465 ml 705 ml IV Total 1548 ml 1361 ml 3409 ml Output Urine Total 800 ml 800 ml Emesis 50 ml # Voids 1 3 # Bowel Movements 0 Exam General: alert and cooperative Eyes: PERRL, sclera anicteric Mouth: mucous membranes moist Neck: supple, no thyromegaly Lungs: left base crackles w/decreased breath sounds with some expiratory wheezing Heart: RRR, no murmurs appreciated Abdomen: soft, nontender Extremities: no edema, cyanosis, clubbing IVs and Medications IV Fluids NS IV DC'd Lab and Diagnostics Result Diagram: 09/30/16 0540 09/30/16 0540 X-Rays, CTs and MRIs X-RAY CHEST ONE VIEW, PORTABLE 09/28 IMPRESSION: Findings consistent with new left midlung pneumonia. Dictated by: Josh Ding M.D. on 09/28/2016 at 16:41 Approved by: Josh Ding M.D. on 09/28/2016 at 16:42 Assessment & Plan 1. Acute Severe Sepsis, poa, resolved Meeting criteria with tachycardia with heart rate of 103, leukocytosis, WBC 21.1, pulmonary source with pneumonia, CXR findings consistent with new left midlung pneumonia, and organ dysfunction with encephalopathy 2. Healthcare associated pneumonia, poa, improving Meeting criteria with recent admission within last 90 days. High risk for MRSA and Pseudomonal infection - Immunocompromised state with recent insult from Viral infection Influenza and luevano virus - WBC 10 (11.8), procalcitonin 0.52 (0.29), afebrile, left midlung consolidation on X-ray - Continue with Azithromycin and Zosyn IV - Awaiting blood cultures, MRSA screen. Sputum analysis with normal jun, Strep. pneum. Ag urine negative - Repeat CXR tomorrow morning 3. Possible Acute Exacerbation of COPD secondary to pneumonia, poa, active - Solu-Medrol IV 125 mg IV once received in ED - Continue Prednisone 40 mg PO qd, day 2 - Albuterol treatments scheduled - Oxygen supplementation PRN 4. Elevated troponin, poa, improving - Most likely d/t sepsis - 0.115 on admission, 0.074 now - Continue to monitor 5. Type 2 Diabetes, requiring Insulin, poa, active - Not well controlled, increase Lantus from15 units hs daily to 22 - High correctional dose scale 6. Acute Encephalopathy, poa, resolved - Due to Sepsis, continue to treat underlying cause - High risk of delirium, avoid psychoactive medications Chronic conditions: 7. Atrial flutter, chronic, stable - Currently rate controlled, monitor on telemetry 8. Hyperlipidemia, - Continue atorvastatin 9. Depression - continue Mirtazapine daily at bedtime, bupropion twice a day 10. Hypertension - Continue all medications: Losartan, triamterene/hydrochlorothiazide, - Acetaminophen as needed for mild pain/fever/headache - Bowel regimen as needed - Antiemetic as needed Patient admitted under inpatient status with expected length of stay > 2 midnights for severity of present symptoms, complexities of treatment plan and risk for adverse event Disposition: Home within 1-2 days depending on clinical course VTE Prophylaxis: Sub-Q Heparin (Unfractionated) Resuscitation Status: CPR: Attempt Resuscitation Attending Statement The patient was seen and examined together with Dr. Lion on 09-30-16 and I agree with the history, exam and plan as outlined in the note above. Zeinab Lion DO Sep 30, 2016 16:39 Kasi Loyd MD Oct 01, 2016 13:04
--- NOTE | 2016-09-30 17:00 | NUR ---
Blood glucose Pt's blood glucose reading was 430 before dinner. Pt was A&Ox4 and answered questions appropriately. Pt's skin was pink, warm, and dry. Administered 4 units of insulin with RN per pt's sliding scale protocols. Will continue to monitor.
[2016-09-30] MEDS ORDERED: 0.9% Sodium Chloride 250 ML ONE (18:14)
[2016-09-30] MEDS ORDERED: Insulin GLARgine 100 Unit/mL Syringe SUBQ SCH (21:00)
[2016-09-30] MEDS: Insulin GLARgine 100 Unit/mL Syringe SUBQ SCH (21:44)
[2016-10-01] VITALS (13 sets, daily range): BP systolic 115–147; BP diastolic 69–77; PULSE 65–96; RESP 18–22; O2SAT 88–97
[2016-10-01] MEDS: Albuterol-Ipratropium 3 mL Inhalation Solution NEB SCH ×6 (00:29→20:48)
[2016-10-01] MEDS: Albuterol 2.5 mg/3 mL Inhalation Solution NEB SCH ×3 (00:30→08:30)
[2016-10-01] MEDS: Heparin 5,000 Unit/mL Inj SUBQ SCH ×3 (01:51→17:28)
[2016-10-01] MEDS: Piperacillin-Tazo 3.375 Gm Inj 3.375 GM in Dextrose 5% Minibag Plus 50 ML IV SCH ×3 (01:52→17:32)
--- NOTE | 2016-10-01 02:20 | NUR ---
O2 Sats / Mentation Tolerating RA tonight with 92% sat before neb trx's and 95% after neb trx's. On ambulation to bathroom and back to bed never dropped below 92% O2 sat. No coughing fits tonight or c/o sob. Pt reports sleeping much better than prior night although after waking up once around 01:30 became slightly disoriented and forgot why she was tethered to the IV pole and d/c'd own IV accidentally pulling out on way to bathroom.
[2016-10-01 06:30] LABS: BASOPHILS % (AUTO) 0.3 % (0-3); EOSINOPHILS % (AUTO) 0.8 % (0-5); MONOCYTES % (AUTO) 7.1 % (4-12); Mean Corpuscular Hemoglobin 28.6 pg (27.0-35.0); Mean Corpuscular Volume 87.1 fL (81-100); NEUTROPHILS % (AUTO) 64.5 % (40-74); Platelet Count 208 bil/L (150-400)
[2016-10-01] MEDS: Insulin LISPRO 300 Unit/3 mL Inj SUBQ SCH ×4 (08:00→22:04)
[2016-10-01 08:08] LABS: TROPONIN T 0.029 ug/L (0.0-0.011)
--- NOTE | 2016-10-01 08:41 | NUR ---
Pt has albuterol order from when hospital ran out of duoneb. Albuterol dose not given because duoneb is available now.
--- NOTE | 2016-10-01 09:09 | DRSVH ---
PROCEDURE: X-RAY CHEST ONE VIEW, PORTABLE ([id number]) INDICATIONS: cough, sob TECHNIQUE: One view of the chest was acquired. COMPARISON: [facility], CR, XR CHEST 1VW (PORTABLE), 09/28/2016, 16:11. FINDINGS: Surgical changes and devices: None. Lungs and pleura: No pleural effusions or pneumothorax. There is no significant change in left midlu ng airspace opacity. Right lung remains clear. Mediastinum: Mediastinal contours appear normal. Heart size is normal. Bones and chest wall: No suspicious bony lesions. Overlying soft tissues appear unremarkable. IMPRESSION: Persistent mid left lung airspace opacity suggesting pneumonia. Continued radiographic surveillance to resolution is recommended. Dictated by: Iglesia CARD Interpreted: Britany Vargas MD on 10/01/2016 at 9:08 Transcribed by: LEIGHANN on 10/01/2016 at 9:09 Approved by: Britany Vargas M.D. on 10/01/2016 at 16:54
[2016-10-01] MEDS: Azithromycin Inj 500 MG in Dextrose 5% w/Vial Mate 250 ML IV SCH (10:21)
[2016-10-01] MEDS: predniSONE 10 mg Tablet PO SCH (10:21)
--- NOTE | 2016-10-01 14:31 | PCM.PNMED ---
Subjective Date of Service Oct 01, 2016 Subjective Patient is a 81 year old female with COPD, asthma, hyperlipidemia, hypertension , diabetes mellitus, and CVA who was presents to the [facility] ED via EMS with high fever (102.1F) and altered mental status. Admitted for sepsis criteria with left sided pneumonia. Hospital day 4. No acute overnight events. This morning, she states she does feel much better. She is still coughing less. Exam Vital Signs Vital Sign - Last Date Time Temp Pulse Resp B/P Pulse Ox O2 Delivery O2 Flow Rate FiO2 10/01/16 13:03 36.2 65 20 133/77 96 Room Air 10/01/16 09:58 2.00 Intake and Output 09/30/16 09/30/16 10/01/16 Cumulative From/Thru 15:00 23:00 07:00 09/28/16 15:35 - 10/01/16 06:44 Intake Total 300 ml 2639 ml 132 ml 7185 ml Output Total 3 ml 1550 ml 2403 ml Balance 297 ml 1089 ml 132 ml 4782 ml Intake Oral 300 ml 1550 ml 2555 ml IV Total 1089 ml 132 ml 4630 ml Output Urine Total 3 ml 1550 ml 2353 ml Emesis 50 ml # Voids 4 7 # Bowel Movements 0 0 Exam General: alert and cooperative Eyes: PERRL, sclera anicteric Mouth: mucous membranes moist Neck: supple, no thyromegaly Lungs: left base crackles w/decreased breath sounds with some expiratory wheezing, improving Heart: RRR, no murmurs appreciated Abdomen: soft, nontender Extremities: no edema, cyanosis, clubbing IVs and Medications Medications Reviewed: Medications were reviewed in detail Lab and Diagnostics Result Diagram: 10/01/16 0557 10/01/16 0557 X-Rays, CTs and MRIs X-RAY CHEST ONE VIEW, PORTABLE 09/28 IMPRESSION: Findings consistent with new left midlung pneumonia. Dictated by: Josh Ding M.D. on 09/28/2016 at 16:41 Approved by: Josh Ding M.D. on 09/28/2016 at 16:42 Assessment & Plan 1. Acute Severe Sepsis, poa, resolved Meeting criteria with tachycardia with heart rate of 103, leukocytosis, WBC 21.1, pulmonary source with pneumonia, CXR findings consistent with new left midlung pneumonia, and organ dysfunction with encephalopathy 2. Healthcare associated pneumonia, poa, improving Meeting criteria with recent admission within last 90 days. High risk for MRSA and Pseudomonal infection - Immunocompromised state with recent insult from Viral infection Influenza and luevano virus - WBC 7.7 (10.0), procalcitonin 0.36 (0.52), afebrile, left midlung consolidation on X-ray - Pt was initially on IV Azithromycin and Zosyn, will switch to PO Azithromycin now - Per ID's recommendation, will discharge to home with Amoxicillin to complete course of therapy - Blood cultures negative, MRSA screen negative, sputum analysis with normal jun, Strep. pneum. Ag urine negative - Repeat CXR tomorrow 3. Possible Acute Exacerbation of COPD secondary to pneumonia, poa, active - Solu-Medrol IV 125 mg IV once received in ED - Continue Prednisone 40 mg PO qd, day 3 - Albuterol treatments scheduled - DC oxygen supplementation. SpO2 96% on room air 4. Elevated troponin, poa, resolved - Most likely d/t sepsis - 0.115 on admission, 0.029 now 5. Type 2 Diabetes, requiring Insulin, poa, improved - Better controlled with Lantus 22 units hs - High correctional dose scale - Diabetes education prior to discharge 6. Acute Encephalopathy, poa, resolved - Due to Sepsis, continue to treat underlying cause - High risk of delirium, avoid psychoactive medications Chronic conditions: 7. Atrial flutter, chronic, stable - Currently rate controlled, monitor on telemetry 8. Hyperlipidemia, - Continue atorvastatin 9. Depression - continue Mirtazapine daily at bedtime, bupropion twice a day 10. Hypertension - Continue all medications: Losartan, triamterene/hydrochlorothiazide, - Acetaminophen as needed for mild pain/fever/headache - Bowel regimen as needed - Antiemetic as needed Disposition: Home tomorrow VTE Prophylaxis: Sub-Q Heparin (Unfractionated) Resuscitation Status: CPR: Attempt Resuscitation Attending Statement The patient was seen and examined together with Dr. Lion on 10/01/2016 and I agree with the history, exam and plan as outlined in the note above. Zeinab Loin DO Oct 01, 2016 14:30 Yogesh Jenkins MD Oct 02, 2016 13:12
--- NOTE | 2016-10-01 15:47 | PROG NOTE ---
[address] [address] PROGRESS NOTE PATIENT: NUNO ALATORRE : 1935 MR#: [id number] ADMIT: 09/28/2016 JOB ID: [id number] DATE: 10/01/2016 INFECTIOUS DISEASE FOLLOW UP NOTE: REASON FOR FOLLOW UP: Postviral left-sided bacterial pneumonia. INTERVAL HISTORY: The patient reports her breathing and cough are both improved. She still has a cough which is sometimes very irritating and causes some mild left pleuritic chest pain. It is still productive but much less so than it was, and overall, her shortness of breath has diminished. She is now breathing room air. No nausea vomiting, diarrhea. The patient looks more comfortable. She is off supplemental oxygen and breathing only 20 times a minute. Temperature 36.2, pulse 65, blood pressure 133/77. Her mental status is clear. Oral cavity benign. Lungs quite clear posteriorly which is a big improvement. Abdomen soft and nontender. No skin rash. White blood count 7700. Creatinine 0.6. Cultures all negative. IMAGING: A new chest x-ray done today shows persistent left mid lung infiltrate. IMPRESSION: This patient seems to be doing quite well with respect to her bacterial left-sided pneumonia superimposed on her prior viral pneumonia. RECOMMENDATIONS: 1. I would continue with the oral azithromycin and IV Zosyn until she is ready to leave but I think that might reasonably be as early as tomorrow. 2. At home I would just finish treatment with oral amoxicillin in a dose of 1 g p.o. t.i.d. to finish a total of about one week of therapy. 3. ID will go ahead and sign off at this time. Thank you very much for consulting me on this case.
--- NOTE | 2016-10-01 16:19 | NUR ---
Social Work: Readiness for d/c Data: Pt is on day 3 of hospitalization. EMR reviewed, pt discussed in rounds. MD states pt likely ready for d/c tomorrow. BOOKS BINDER met with pt and asked if she has the support that she needs at home. Pt states she has a room mate who can help her if needed. Pt states she has been up and independent in the room and that she does not think she needs HH. No further d/c planning needs anticipated. BOOKS BINDER will continue to follow if needs arise. Assessment: Pt who is independent at baseline. Plan: Pt will d/c home via POV with room mate likely tomorrow, when medically stable. No further d/c planning needs anticipated. BOOKS BINDER will continue to follow if needs arise. SERAFIN May
--- NOTE | 2016-10-01 16:48 | DRSVH ---
PROCEDURE: X-RAY CHEST ONE VIEW, PORTABLE ([id number]) INDICATIONS: SHORT OF BREATH TECHNIQUE: One view of the chest was acquired. COMPARISON: [facility], CR, XR CHEST 1VW (PORTABLE), 10/01/2016, 4:34. FINDINGS: Surgical changes and devices: None. Lungs and pleura: No pleural effusions or pneumothorax. Mid left lung airspace opacity slightly dec reased from prior examination and there is air space opacity also present involving the left lung bas e. Right lung is clear. Interstitium is prominent.. Mediastinum: Mediastinal contours appear normal. Heart size is normal. Bones and chest wall: No suspicious bony lesions. Overlying soft tissues appear unremarkable. IMPRESSION: 1. Decrease in airspace opacity within the mid left lung consistent with atelectasis versus aspiratio n or pneumonia. 2. New opacity within the left lung base consistent with atelectasis versus aspiration or pneumonia. 3. Prominent interstitium similar to prior exam. Dictated by: Iglesia CARD Interpreted: Britany Vargas MD on 10/01/2016 at 16:45 Transcribed by: LEIGHANN on 10/01/2016 at 16:47 Approved by: Britany Vargas M.D. on 10/01/2016 at 17:16
--- NOTE | 2016-10-01 18:26 | NUR ---
SOB Patient continues to report feeling short of breath with activity and at rest. Maintaining good O2 sats of 95-97% on room air. Addendum: 10/01/16 at 1827 by ALIX MALCOLM RN Faint expiratory wheeze right lower lung.
--- NOTE | 2016-10-01 20:10 | NUR ---
Pt activity Pt is able to ambulate in room with standby assistance. Pt complains of SOB with exertion, O2 sats remain stable at 96%. Pt A&Ox4 and answers questions appropriately. Skin is pale, warm, and dry. Will continue to monitor.
[2016-10-01] MEDS: Insulin GLARgine 100 Unit/mL Syringe SUBQ SCH (21:18)
--- NOTE | 2016-10-01 22:15 | NUR ---
Body Alignment / SOB hunched over in bed c/o sob. Repositioned, boosted up and corrected HOB elevation to relieve pressure from abdomen on ribcage/lungs and open airways. No further c/o sob since repositioning @ 19:00. Again ambulated to bathroom with pulse ox attached never dropping below 92% O2 saturation.
[2016-10-02] MEDS: Heparin 5,000 Unit/mL Inj SUBQ SCH ×2 (01:57→08:08)
[2016-10-02] MEDS: Piperacillin-Tazo 3.375 Gm Inj 3.375 GM in Dextrose 5% Minibag Plus 50 ML IV SCH ×2 (01:59→10:42)
[2016-10-02] MEDS: Albuterol-Ipratropium 3 mL Inhalation Solution NEB SCH ×4 (04:30→11:35)
[2016-10-02 04:45] VITALS: PULSE 84; RESP 20; O2SAT 97
[2016-10-02 04:50] VITALS: BP 144/81; PULSE 71; RESP 20; O2SAT 98
[2016-10-02 06:14] LABS: BASOPHILS % (AUTO) 0.1 % (0-3); EOSINOPHILS % (AUTO) 1.3 % (0-5); MONOCYTES % (AUTO) 8.8 % (4-12); Mean Corpuscular Hemoglobin 28.6 pg (27.0-35.0); Mean Corpuscular Volume 87.6 fL (81-100); NEUTROPHILS % (AUTO) 55.3 % (40-74); Platelet Count 217 bil/L (150-400)
[2016-10-02] MEDS: Insulin LISPRO 300 Unit/3 mL Inj SUBQ SCH ×2 (07:29→12:53)
[2016-10-02 07:42] VITALS: PULSE 71; RESP 18; O2SAT 94
[2016-10-02] MEDS: predniSONE 10 mg Tablet PO SCH (08:06)
[2016-10-02] MEDS ORDERED: AMOX500T2 PO (09:07)
--- NOTE | 2016-10-02 10:31 | PCM.DIMED ---
Rahel Cam DO 10/02/16 0908: Discharge Instructions Date of Service Oct 02, 2016 Dates of Hospitalization Sep 28, 2016 at 17:52 Discharge Diagnosis Discharge Diagnosis Acute severe sepsis, present on admission. Resolved. Acute encephalopathy, present on admission. Resolved. Healthcare associated pneumonia, superimposed on recent viral pneumonia, present on admission. Resolving. Acute exacerbation of COPD, present on admission. Resolving. Elevated troponin, secondary to demand ischemia, present on admission. Resolved. Chronic conditions: Diabetes mellitus type II, insulin using, chronic. Stable. Atrial flutter, chronic. Stable. Hyperlipidemia, chronic. Stable. Depression, chronic. Stable. Hypertension, chronic. Stable. . Medication Instructions New medications: Amoxicillin 1000 mg 3 times a day 4 days. Prednisone 40 mg daily 2 days Continued medications: Albuterol 2 puffs inhaled every 4 hours as needed for shortness of breath. Aspirin 162 mg daily. Atorvastatin 40 mg daily. Budesonide 0.5 mg inhaled twice a day. Vitamin D3 5000 units daily. Prolia 60 mg subcutaneous every 6 months. Formoterol 20 g inhaled twice a day. Losartan 100 mg daily. Methocarbamol 500 mg daily at bedtime. Mirtazapine 15 mg daily at bedtime. NPH 14-20 units subcutaneous 3 times a day. Potassium chloride ER 20 mEq daily with food. Triamterene/hydrochlorothiazide 37.5-25 mg daily. . Diet Low fat, Low Sodium, Heart Healthy Activity No restrictions Call your provider Fever or Chills, Shortness of breath, Chest pain Patient Instructions Follow-up plan Please follow-up with your primary care physician, Dr. Chung, in the next 1-2 weeks regarding your recent hospitalization for pneumonia. You were prescribed amoxicillin 1000 mg 3 times a day for the next 4 days to complete your treatment of pneumonia. You may need a repeat chest x-ray in 6 weeks at the discretion of your primary care physician to assess the your pneumonia has resolved completely. . Follow-up Provider: Danis Chung MD Follow-up with PCP in: 2 weeks Yogesh Jenkins MD 10/02/16 1313: Mcc[place]hel [place] LARIOS Oct 02, 2016 09:08 Yogesh Jenkins MD Oct 02, 2016 13:13
[2016-10-02] MEDS ORDERED: PRE20 PO (10:35)
--- NOTE | 2016-10-02 10:50 | NUR ---
Social Work: Discharge Data: Pt is ond ay 4 of hospitalization. EMR reviewed, pt discussed in rounds. D/C orders are in. No further d/c planning needs identified at this time. WAITER/WAITRESS [employer]GE will continue to follow if needs arise. Assessment: Pt who is independent at baseline. Plan: Pt will d/c home via POV today. No further d/c planning needs identified at this time. WAITER/WAITRESS [employer]GE will continue to follow if needs arise. SERAFIN May
--- NOTE | 2016-10-02 11:12 | PCM.DC.MED ---
Discharge Summary Date of Service Oct 02, 2016 Dates of Hospitalization Date of Hospital Admission Sep 28, 2016 at 17:52 Date of Discharge: Oct 02, 2016 Providers: Admitting Physician: Edmund Mendenhall MD Primary Care Physician: Danis Chung MD Attending Physician: Edmund Mendenhall MD Diagnosis at Time of Discharge Diagnosis at Time of Discharge Acute severe sepsis, present on admission. Resolved. Acute encephalopathy, present on admission. Resolved. Healthcare associated pneumonia, superimposed on recent viral pneumonia, present on admission. Resolving. Acute exacerbation of COPD, present on admission. Resolving. Elevated troponin, secondary to demand ischemia, present on admission. Resolved. Chronic conditions: Diabetes mellitus type II, insulin using, chronic. Stable. Atrial flutter, chronic. Stable. Hyperlipidemia, chronic. Stable. Depression, chronic. Stable. Hypertension, chronic. Stable. . Consultations Infectious disease, Dr. Ashley. . Procedures XRay, CTs & MRIs X-RAY CHEST ONE VIEW, PORTABLE IMPRESSION: 1. Decrease in airspace opacity within the mid left lung consistent with atelectasis versus aspiration or pneumonia. 2. New opacity within the left lung base consistent with atelectasis versus aspiration or pneumonia. 3. Prominent interstitium similar to prior exam. Dictated by: Iglesia Barriga RRA Interpreted: Britany Vargas MD on 10/01/2016 at 16: 45 Transcribed by: LEIGHANN on 10/01/2016 at 16:47 Approved by: Britany Vargas M.D. on 10/01/2016 at 17:16 X-RAY CHEST ONE VIEW, PORTABLE IMPRESSION: Findings consistent with new left midlung pneumonia. Dictated by: Josh Ding M.D. on 09/28/2016 at 16:41 Approved by: Josh Ding M.D. on 09/28/2016 at 16:42 . Brief History Per history of present illness written by Dr. Mendenhall on 09/28/2016: Brigette Hugo is a 81 year old female with COPD, asthma, hyperlipidemia, hypertension, diabetes mellitus, and CVA who was presents to the [facility] Emergency department via EMS due to fever (102.1F at home) and altered mental status. History is limited due to patient's confusion. Her caregiver who is also her room mate reported that the patient was doing well last night but it was this morning that she states "I fell like crap", She was short of breathe, coughing with phlegm (unclear of the color or description) and also some confusion (she kept changing the channel and was not herself). She initially refused to come to the hospital but then this afternoon the caregiver checked on her and her symptoms got worst. Patient states she is on a tapering dose of Prednisone and she was doing it wrong. She was recently hospitalized and was diagnosed with Influenza A and coronavirus and completed a course of Tamiflu and steroids. Case discussed with Dr Arredondo, meeting sepsis criteria with left sided pneumonia. Plan to admit. . Hospital Course Brigette Hugo is a 81 year old female with COPD, asthma, hyperlipidemia, hypertension, diabetes mellitus, and CVA who was presents to the [facility] Emergency department via EMS due to Sepsis due to pneumonia 1. Acute severe sepsis, present on admission. Resolved. SIRS criteria met include: Tachycardia with heart rate of 103, leukocytosis, WBC 21.1, and pulmonary source with pneumonia. CXR findings consistent with new left midlung pneumonia, and organ dysfunction with encephalopathy Early goal-directed therapy mat including: IV fluid hydration and broad- spectrum antibiotics. 2. Acute healthcare associated pneumonia, superimposed on recent viral pneumonia, present on admission. Resolving. Meeting criteria with recent admission within last 90 days. High risk for MRSA and Pseudomonal infection - The patient was recently immunocompromised secondary to recent insult from viral infection of both influenza Ah3 and luevano virus. - Chest x-ray revealed left midlung consolidation, as above. - Pro-calcitonin maximally elevated at 0.52 and trended down. - Blood cultures show no growth after 2 days, MRSA screen negative, sputum culture shows no growth today and strep pneumonia and legionella urine antigens negative, as above. - Continued with Azithromycin 500 mg IV 3 days and Zosyn IV 3.375 mg IV 3 days. Patient discharged on amoxicillin 1 g 3 times a day 4 more days to complete a 7 day course per infectious disease. 3. Acute exacerbation of COPD, present on admission. Resolving. - Solu-Medrol IV 125 mg IV once received in ED. - Continued prednisone 40 mg daily throughout hospitalization. Patient was discharged with prednisone 40 mg 2 days. - Albuterol nebulizer treatments provided as needed throughout hospitalization. - Supplemental oxygen provided as needed throughout hospitalization. 4. Elevated troponin, secondary to demand ischemia, present on admission. Resolved. - Initially elevated at 0.115 on admission and trended down. - No signs of angina or ACS on admission. Continued to monitor for angina or ACS. 5. Acute metabolic encephalopathy, present on admission. Resolved. - Due to sepsis, continued to treat underlying cause pneumonia and COPD exacerbation. - High risk of delirium, avoided psychoactive medications. Chronic problems: 6. Diabetes mellitus type II, insulin using, chronic. Stable. - Better controlled with Lantus 22 units hs - High correctional dose scale - Diabetes education prior to discharge 7. Atrial flutter, chronic. Stable. - Rate controlled throughout hospitalization. - Monitored on telemetry throughout hospitalization. 8. Hyperlipidemia, chronic. Stable. - Continued atorvastatin. 9. Depression, chronic. Stable. - Continued Mirtazapine daily at bedtime. 10. Hypertension, chronic. Stable. - Continued all medications: Losartan 100 mg daily and triamterene/ hydrochlorothiazide 37.5-25 mg daily. . Exam Vital Signs (Last) Date Time Temp Pulse Resp B/P Pulse Ox O2 Delivery O2 Flow Rate FiO2 10/02/16 07:42 71 18 94 10/02/16 04:50 36.5 144/81 Room Air 10/01/16 09:58 2.00 Exam General: Elderly female lying in bed and in no acute distress, well-developed, well-nourished, appropriately interactive HEENT: Normocephalic, atraumatic. External ears without defect. Pupils equal, round, and reactive to light and accommodation. Anicteric sclerae, moist conjunctivae, and no lid lag. Oropharynx free of erythema and cobble stoning with moist mucosa. Neck: Supple with full range of motion. No jugular venous distension. No bruits. No lymphadenopathy or thyromegaly. Cardiovascular: Regular rate and rhythm with no murmurs, rubs, or gallops appreciated Pulmonary: Clear to auscultation bilaterally without rales or wheeze. Scattered rhonchi in upper airway. Normal respiratory effort with no use of accessory muscles. Abdomen: Soft, obese, nontender, nondistended, bowel sounds present. No hepatosplenomegaly or masses appreciated. Extremities: No clubbing, cyanosis, or edema. Skin: Normal temperature, turgor, and texture; no rash, ulcers, or subcutaneous nodules appreciated. Neurological: Cranial nerves grossly intact. Normal muscle strength, tone, and bulk. Reflexes, coordination, and sensory function within normal limits. No known gait impairment. Psychiatric: Normal mood and affect. Alert and oriented to person, place, and time. . Test 09/28/16 15:30 09/28/16 15:50 09/28/16 15:56 09/30/16 05:40 Pro-B-Type Natriuretic Peptide 3596pg/mL (0-738) Urine Color Yellow (YELLOW) Urine Appearance Clear (CLEAR,HAZY) Urine pH 6.0 (5.0-8.0) Urine Specific [place] 1.030 (1.003-1.035) Urine Protein 100mg/dL (NEG,TRACE) Urine Glucose (UA) 1000mg/dL (NEGATIVE) Urine Ketones 15mg/dL (NEGATIVE) Urine Occult Blood Moderate (NEGATIVE) Urine Nitrite Negative (NEGATIVE) Urine Bilirubin Negative (NEGATIVE) Urine Urobilinogen Normalmg/dL (NORMAL) Urine Leukocyte Esterase Negative (NEGATIVE) Urine RBC 3-10/hpf (0-2) Urine WBC 0-5/hpf (0-5) Urine Epithelial Cells Few/hpf (NONE-MOD) Urine Crystals Uric acid crystals (NONE Urine Bacteria None/hpf (NONE-FEW) Urine Hyaline Casts None/lpf (NONE) Urine Granular Casts None seen (NONE SEEN) Urine Waxy Casts None seen (NONE SEEN) Urine Red Blood Cell Casts None seen (NONE SEEN) Urine White Blood Cell Casts None seen (NONE SEEN) Urine Mucus None seen (None Seen) Urine Trichomonas None seen (NONE SEEN) Urine Yeast None (NONE SEEN) Urinalysis Comment None Urine Culture Reflexed Not indicated Urine Legionella pneumophilia Ag Negative (Negative) Lactic Acid Level 1.3mmol/L (0.4-2.0) Magnesium Level 1.9mg/dL (1.6-2.6) Test 10/01/16 05:57 10/02/16 05:35 Troponin T 0.029ug/L (0.0-0.011) Procalcitonin 0.36ng/mL (0.00-0.08) White Blood Count 7.0th/mm3 (3.8-10.1) Red Blood Count 4.02mil/mm3 (3.90-5.20) Hemoglobin 11.5g/dL (12.0-15.6) Hematocrit 35.2% (35.0-46.0) Mean Corpuscular Volume 87.6fL (81-100) Mean Corpuscular Hemoglobin 28.6pg (27.0-35.0) Mean Corpuscular Hemoglobin Concent 32.7% (32.0-37.0) Red Cell Distribution Width 13.2% (12.3-15.4) Platelet Count 217bil/L (150-400) Neutrophils (%) (Auto) 55.3% (40-74) Lymphocytes (%) (Auto) 34.2% (14-46) Monocytes (%) (Auto) 8.8% (4-12) Eosinophils (%) (Auto) 1.3% (0-5) Basophils (%) (Auto) 0.1% (0-3) Sodium Level 143mEq/L (134-144) Potassium Level 3.8mEq/L (3.5-5.2) Chloride Level 105mEq/L (97-108) Carbon Dioxide Level 29mmol/L (18-29) Blood Urea Nitrogen 12mg/dL (8-27) Creatinine 0.55mg/dL (0.57-1.00) Estimat Glomerular Filtration Rate 152mL/min (>59) Glucose Level 100mg/dL (60-99) Calcium Level 8.5mg/dL (8.5-10.1) Total Bilirubin 0.2mg/dL (0.0-1.2) Aspartate Amino Transf (AST/SGOT) 16U/L (0-50) Alanine Aminotransferase (ALT/SGPT) 17U/L (0-32) Alkaline Phosphatase 64U/L (25-165) Total Protein 5.3g/dL (6.4-8.4) Albumin 3.0g/dL (3.4-5.0) Discharge Medications Discharge Medications Amoxicillin (Amoxicillin) 500 Mg Tablet 1,000 MG PO TID Prescribed by: JASON TORRES DO Aspirin (Aspirin) 81 Mg Tablet 162 MG PO DAILY Prescribed by: GAVIN MASSEY MD Atorvastatin (Lipitor) 40 Mg Tablet 40 MG PO DAILY Prescribed by: GAVIN MASSEY MD Budesonide Neb Soln (Budesonide Neb Soln) 0.5 Mg/2 Ml Neb 0.5 MG INHALATION BID (Reported) Bupropion (Bupropion) 75 Mg Tablet 75 MG PO BID (Reported) Cholecalciferol (Vitamin D3) (Vitamin D3) 5,000 Unit Tablet 5,000 UNIT PO DAILY (Reported) Denosumab (Prolia) 60 Mg/1 Ml Syringe 60 MG SQ A0noixma (Reported) Formoterol Fumarate (Perforomist) 20 Mcg/2 Ml Vial.neb 20 MCG IH BID (Reported) Losartan Potassium (Cozaar) 100 Mg Tablet 100 MG PO DAILY (Reported) Methocarbamol (Methocarbamol) 500 Mg Tablet Unknown Dose PO HS (Reported) Mirtazapine (Mirtazapine) 15 Mg Tablet 15 MG PO HS (Reported) NPH, Human Insulin Isophane (HUMulin-N U100 Insulin Kwikpen) 100 Unit/1 Ml Insuln.pen 14-20 UNIT SUBQ TID (Reported) Potassium Chloride ER (Potassium Chloride ER) 10 Meq Tablet 20 MEQ PO DAILY WITH FOOD (Reported) TAKE WITH FOOD Prednisone (PredniSONE) 20 Mg Tablet 40 MG PO DAILY Prescribed by: JASON TORRES DO Triamterene/HCTZ 37.5-25 mg (Triamterene/HCTZ 37.5-25 mg) 1 Each Capsule 1 CAPSULE PO DAILY (Reported) As needed Albuterol Neb Soln (Albuterol Neb Soln) 2.5 Mg/3 Ml Vial.neb 2.5 MG INHALATION Q4H PRN PRN For Shortness of Breath (Reported) Additional med instructions New medications: Amoxicillin 1000 mg 3 times a day 4 days. Prednisone 40 mg daily 2 days Continued medications: Albuterol 2 puffs inhaled every 4 hours as needed for shortness of breath. Aspirin 162 mg daily. Atorvastatin 40 mg daily. Budesonide 0.5 mg inhaled twice a day. Vitamin D3 5000 units daily. Prolia 60 mg subcutaneous every 6 months. Formoterol 20 g inhaled twice a day. Losartan 100 mg daily. Methocarbamol 500 mg daily at bedtime. Mirtazapine 15 mg daily at bedtime. NPH 14-20 units subcutaneous 3 times a day. Potassium chloride ER 20 mEq daily with food. Triamterene/hydrochlorothiazide 37.5-25 mg daily. . Followup Plan Disposition: Home. . Follow-up plan Please follow-up with your primary care physician, Dr. Chung, in the next 1-2 weeks regarding your recent hospitalization for pneumonia. You were prescribed amoxicillin 1000 mg 3 times a day for the next 4 days to complete your treatment of pneumonia. You may need a repeat chest x-ray in 6 weeks at the discretion of your primary care physician to assess the your pneumonia has resolved completely. . Discharge Diet: Low fat, Low Sodium, Heart Healthy Discharge Activity: No restrictions Follow-up Provider: Danis Chung MD Follow-up with PCP in: 2 weeks Time spent 35 minutes Attending Statement The patient was seen and examined together with Dr. Torres on 10/02/2016 and I agree with the history, exam and plan as outlined in the note above. Jason Torres DO Oct 02, 2016 11:11 Yogesh Jenkins MD Oct 03, 2016 13:32
[2016-10-02 11:35] VITALS: PULSE 90; RESP 18; O2SAT 94
[2016-10-02 12:57] VITALS: BP 153/79; PULSE 90; RESP 20; O2SAT 92
--- NOTE | 2016-10-02 14:36 | NUR ---
Discharge: VSS, a/o, moves all extremities. IV d/c'd intact. Given care notes r/t amoxicillin and bacterial pneumonia. Extensive discussion of medications, pt has follow up appt with Dr Chung next week. D/c'd home with all personal belongings, family providing transport.
--- NOTE | 2016-10-03 13:52 | NUR ---
Diabetes Discharge follow up call attempt: Patient called at home. 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 No option to leave message.
--- NOTE | 2016-10-06 16:38 | NUR ---
DM F/U call Pt stated that AM BS was 450, she used her insulin (guessed). BS this afternoon is 250. Pt states that she feels fine. Pt reports that she has not read the discharge instructions. I informed pt that there should be a sliding scale in the instructions. Pt stated that she was going to go read through her paperwork at the end of the call. Pt encouraged to seek medical care if she is unable to get her blood sugars down to a normal range. Pt verbalized understanding.
== END 2016-10-02 14:38 | disposition home or self-care (01) | DRG 871 ==
LOC: EDBD 15:18 → SED 15:18 → OSC 17:52 → MPC 22:34
PROVIDERS: ADMIT Hospitalist; ATTEND Hospitalist
DX: A41.9 Sepsis, unspecified organism (principal); G93.41 Metabolic encephalopathy; J18.9 Pneumonia, unspecified organism; J44.1 Chronic obstructive pulmonary disease with (acute) exacerbation; I24.8 Other forms of acute ischemic heart disease; J44.0 Chronic obstructive pulmonary disease with (acute) lower respiratory infection; R65.20 Severe sepsis without septic shock; Z79.82 Long term (current) use of aspirin; Z86.73 Personal history of transient ischemic attack (TIA), and cerebral infarction without residual deficits; Z79.52 Long term (current) use of systemic steroids; E11.9 Type 2 diabetes mellitus without complications; E78.5 Hyperlipidemia, unspecified; F32.9 Major depressive disorder, single episode, unspecified; I10 Essential (primary) hypertension; Z79.4 Long term (current) use of insulin